=== PATIENT | female | born 1950 | race Caucasian/White ===

== ENCOUNTER → 2016-06-23 | Outpatient (CLI) | payer MEDICARE, OTHER ==
--- NOTE | 2016-06-23 13:54 | MM ---
Reason for exam: history of breast cancer, conservation therapy. Last mammogram was performed 1 year ago. History: Patient is postmenopausal and has history of breast cancer at age 49. Family history of breast cancer in mother and breast cancer in maternal aunt. Benign excisional biopsy of the left breast, 2014. Lumpectomy of the right breast, 1999. Radiation therapy, 1999. Physical Findings: Nurse did not find any significant physical abnormalities on exam. MG 3D Diag Mammo W/Cad FILIPPO Bilateral CC and MLO view(s) were taken. Prior study comparison: June 10, 2015, bilateral MG 3d diag mammo w/cad FILIPPO. June 27, 2014, mammogram, performed at [facility]. The breast tissue is heterogeneously dense. This may lower the sensitivity of mammography. Finding #1: Stable architectural distortion in the right breast. Finding #2: There are typically benign dystrophic, linear calcifications in both breasts. There is no discrete abnormality. These results were verbally communicated with the patient and result sheet given to the patient on 06/23/16. ASSESSMENT: Benign, BI-RAD 2 RECOMMENDATION: Follow-up diagnostic mammogram of both breasts in 1 year.
== END | disposition home or self-care (01) ==
LOC: RADMAMWWP 12:37
PROVIDERS: ATTEND Surgery
DX: Z85.3 Personal history of malignant neoplasm of breast (principal)
CPT/HCPCS: G0204; G0279

== ENCOUNTER → 2016-08-23 | Outpatient (CLI) | payer MEDICARE, OTHER ==
--- NOTE | 2016-08-23 10:55 | XR ---
EXAMINATION TYPE: XR chest 2V DATE OF EXAM: 08/23/2016 10:51 AM COMPARISON: 03/09/2010 INDICATION: Breast cancer TECHNIQUE: 2 view chest FINDINGS: The heart size is normal. The pulmonary vasculature is normal. The lungs are clear. Right axillary surgical clips are present. IMPRESSION: 1. No acute pulmonary process.
== END | disposition home or self-care (01) ==
LOC: RADXRMAIN 10:36
PROVIDERS: ATTEND Internal Medicine Hematology & Oncology
DX: C50.511 Malignant neoplasm of lower-outer quadrant of right female breast (principal); G35 Multiple sclerosis; Q78.2 Osteopetrosis; Z17.0 Estrogen receptor positive status [ER+]
CPT/HCPCS: 71020

== ENCOUNTER → 2016-08-29 | Outpatient (CLI) | payer MEDICARE, OTHER ==
--- NOTE | 2016-08-29 10:55 | BD ---
EXAMINATION TYPE: MG DEXA axial skeleton. DATE OF EXAM: 08/29/2016 10:19 AM CLINICAL HISTORY: Height: 61 inches Weight: 144 FRAX RISK QUESTIONS: Alcohol (3 or more units per day): no Family History (Parent hip fracture): no Glucocorticoids (More than 3mos): no (Ex: prednisone, prednisolone, methylprednisolone, dexamethasone, and hydrocortisone). History of Fracture in Adulthood: no Secondary Osteoporosis: 1. Type 1 Diabetes: no 2. Hyperthyroidism: no 3. Menopause before 45: 44 4. Malnutrition: no 5. Chronic liver disease: no Rheumatoid Arthritis: no Current Tobacco Use: no RISK FACTORS HISTORY OF: Family History of Osteoporosis: patient thinks probably grandmother Drink Alcohol: no Active: no Diet low in dairy products/other sources of calcium: no Postmenopausal woman: yes Take estrogen and/or progesterone medications: no Lost more than 2 inches in height since high school: no Frequent falls: no Poor Health: no Hyperparathyroidism: no Adrenal Insufficiency: no MEDICATIONS: Prednisone or other steroids: no Thyroid Medications: no Osteoporosis Medications: not now Which medication: Fosamax How Long: a couple of years Additional Medications: blood pressure meds, cholesterol meds Additional History: Breast CA, radiation 2000 EXAM MEASUREMENTS: Bone mineral densitometry was performed using the [employer] System. Bone mineral density as measured about the Lumbar spine is: ----- L1-L4(G/cm2): 1.058 T Score Values are as follows: ----- L2: -1.1 ----- L3: -0.9 ----- L4: -1.0 ----- L1-L4: -1.0 Bone mineral density not previously done at this facility; done elsewhere Bone mineral density about the R hip (g/cm2): 0.824 Bone mineral density about the L hip (g/cm2): 0.822 T Score values are as follows: -----R Neck: -1.5 -----L Neck: -1.6 -----R Total: -0.6 -----L Total: -0.9 Bone mineral density not previously done at this facility; done elsewhere IMPRESSION: Normal (Values between +1 and -1 indicate normal bone mass). Consider repeating this study in 5 year s or sooner if there is some new clinical indication. L1, L2 & both hips Osteopenia (T Score between -2.5 and -1 as noted by T score values L2, and Bilateral Necks There is slightly increased risk of fracture and the patient may be considered for treatment. Re-Screen 2-5 years. NOTE: T-SCORE=SD OF THE YOUNG ADULT MEAN.
== END ==
LOC: RADBDWWP 09:54
PROVIDERS: ATTEND Obstetrics & Gynecology
DX: M85.80 Other specified disorders of bone density and structure, unspecified site (principal)
CPT/HCPCS: 77080

== ENCOUNTER → 2016-12-23 | Outpatient (CLI) | payer MEDICARE, OTHER ==
[2016-12-23 11:46] LABS: Basophils # (A) 0.1 k/uL (0-0.2); Basophils % (A) 1 %; CH 30.2; CHCM 34.9; Eosinophils # (A) 0.3 k/uL (0-0.7); Eosinophils % (A) 5 %; HCT 34.6 % (34.0-46.0); HDW 2.96; HGB 12.3 gm/dL (11.4-16.0); Luc # (Auto) 0.13; Luc % (Auto) 2; Lymphocytes % (A) 19 %; MCH 31.1 pg (25.0-35.0); MCHC 35.6 g/dL (31.0-37.0); MCV 87.2 fL (80.0-100.0); Mean Platelet Volume 7.4; Monocytes # (A) 0.6 k/uL (0-1.0); Monocytes % (A) 11 %; Neutrophils # (A) 3.3 k/uL (1.3-7.7); Neutrophils % (A) 62 %; RBC 3.97 m/uL (3.80-5.40); RDW 13.1 % (11.5-15.5); WBC 5.3 k/uL (3.8-10.6); WBC (Perox) 5.68
[2016-12-23 11:57] LABS: ALT 27 U/L (9-52); AST 23 U/L (14-36); Blood Urea Nitrogen 18 mg/dL (7-17); Non-African American GFR(MDRD) >60 (>60 ml/min/1.73 sqM)
== END | disposition home or self-care (01) ==
LOC: LABWHC1 11:12
PROVIDERS: ATTEND Psychiatry & Neurology Neurology
DX: G35 Multiple sclerosis (principal)
CPT/HCPCS: 36415; 82565; 84450; 84460; 84520; 85025

== ENCOUNTER → 2017-07-25 | Outpatient (CLI) | payer MEDICARE, OTHER ==
--- NOTE | 2017-07-25 13:59 | MM ---
Reason for exam: additional evaluation requested from prior study. Last mammogram was performed 1 year and 1 month ago. History: Patient is postmenopausal and has history of breast cancer at age 49. Family history of breast cancer in mother and breast cancer in maternal aunt. Benign excisional biopsy of the left breast, 2014. Lumpectomy of the right breast, 1999. Radiation therapy, 1999. Physical Findings: Nurse did not find any significant physical abnormalities on exam. MG 3D Diag Mammo W/Cad FILIPPO Bilateral CC and MLO view(s) were taken. Prior study comparison: June 23, 2016, bilateral MG 3d diag mammo w/cad FILIPPO. June 10, 2015, bilateral MG 3d diag mammo w/cad FILIPPO. The breast tissue is heterogeneously dense. This may lower the sensitivity of mammography. Finding: There are typically benign dystrophic, round, linear calcifications in both breasts. There is no discrete abnormality. Asymmetry diminished in size right breast consistent with known treatment changes and lumpectomy. These results were verbally communicated with the patient and result sheet given to the patient on 07/25/17. ASSESSMENT: Benign, BI-RAD 2 RECOMMENDATION: Follow-up diagnostic mammogram of both breasts in 1 year.
== END | disposition home or self-care (01) ==
LOC: RADMAMWWP 12:29
PROVIDERS: ATTEND Surgery
DX: Z08 Encounter for follow-up examination after completed treatment for malignant neoplasm (principal); Z85.3 Personal history of malignant neoplasm of breast
CPT/HCPCS: 77066; G0279

== ENCOUNTER → 2018-07-31 | Outpatient (CLI) | payer MEDICARE, OTHER ==
--- NOTE | 2018-07-31 11:31 | MM ---
Reason for exam: additional evaluation requested from prior study. Last mammogram was performed 1 year ago. History: Patient is postmenopausal and has history of breast cancer at age 49. Family history of breast cancer in mother at age 50 and breast cancer in maternal aunt at age 50. Benign excisional biopsy of the left breast, 2014. Lumpectomy of the right breast, 1999. Radiation therapy, 1999. Physical Findings: Nurse did not find any significant physical abnormalities on exam. MG 3D Diag Mammo W/Cad FILIPPO Bilateral CC and MLO view(s) were taken. Prior study comparison: July 25, 2017, bilateral MG 3d diag mammo w/cad FILIPPO. June 23, 2016, bilateral MG 3d diag mammo w/cad FILIPPO. The breast tissue is heterogeneously dense. This may lower the sensitivity of mammography. Stable benign calcifications. Stable post operative changes of lumpectomy right breast. These results were verbally communicated with the patient and result sheet given to the patient on 07/31/18. ASSESSMENT: Benign, BI-RAD 2 RECOMMENDATION: Follow-up diagnostic mammogram of both breasts in 1 year.
== END ==
LOC: RADMAMWWP 10:42
PROVIDERS: ATTEND Surgery
DX: Z08 Encounter for follow-up examination after completed treatment for malignant neoplasm (principal); Z85.3 Personal history of malignant neoplasm of breast
CPT/HCPCS: 77066; G0279; 77062

== ENCOUNTER → 2019-10-25 | Outpatient (CLI) | payer MEDICARE, OTHER ==
--- NOTE | 2019-10-28 07:52 | MM ---
Reason for exam: additional evaluation requested from prior study. Last mammogram was performed 1 year and 3 months ago. History: Patient is postmenopausal and has history of breast cancer at age 49. Family history of breast cancer in mother at age 50 and breast cancer in maternal aunt at age 50. Benign excisional biopsy of the left breast, 2014. Lumpectomy of the right breast, 1999. Radiation therapy, 1999. Physical Findings: Nurse did not find any significant physical abnormalities on exam. MG 3D Diag Mammo W/Cad FILIPPO Bilateral CC and MLO view(s) were taken. XCCL view(s) were taken of the right breast. Prior study comparison: July 31, 2018, bilateral MG 3d diag mammo w/cad FILIPPO. July 25, 2017, bilateral MG 3d diag mammo w/cad FILIPPO. Asymmetric breast tissue greater in the left breast. Post surgical changes right upper outer quadrant. No significant new findings when compared with previous films. These results were verbally communicated with the patient and result sheet given to the patient on 10/25/19. ASSESSMENT: Benign, BI-RAD 2 RECOMMENDATION: Routine screening mammogram of both breasts in 1 year.
== END | disposition home or self-care (01) ==
LOC: RADMAMWWP 12:45
PROVIDERS: ATTEND Surgery
DX: Z09 Encounter for follow-up examination after completed treatment for conditions other than malignant neoplasm (principal); Z85.3 Personal history of malignant neoplasm of breast
CPT/HCPCS: 77066; G0279; 77062

== ENCOUNTER → 2019-11-27 | Outpatient (CLI) | payer MEDICARE, OTHER ==
--- NOTE | 2019-11-27 13:51 | BD ---
EXAMINATION TYPE: Axial Bone Density DATE OF EXAM: 11/27/2019 COMPARISON: 08.29.2016 CLINICAL HISTORY: 69 YR OLD FEMALE......ICD-10 CODE: C50.511 BREAST CA Q78.2 OSTEOPOROSIS, M89. 9 BONE Height: 59.4 Weight: 141 FRAX RISK QUESTIONS: NOTHING TO NOTE HERE RISK FACTORS HISTORY OF: Postmenopausal woman: YES, IN HER 50s Take estrogen and/or progesterone medications: YES, IN PAST FOR COUPLE YRS Hyperparathyroidism: NO Adrenal Insufficiency: NO MEDICATIONS: Osteoporosis Medications: FOSAMAX IN THE PAST ONLY Additional Medications: BP MEDS, CALCIUM WITH VIT D, STATIN FOR CHOLESTEROL, BETASERON. Additional History: HYPERTENSION, CHOLESTEROL, MS EXAM MEASUREMENTS: Bone mineral densitometry was performed using the [employer] System. Bone mineral density as measured about the Lumbar spine is: ----- L1-L4(G/cm2): 1.102 T Score Values are as follows: ---- L2: -0.7 ----- L2: -0.5 ----- L3: -0.7 ----- L4: -0.8 ----- L1-L4: -0.6 Bone mineral density has: Increased 3.1% since study of: 08.29.2016 Bone mineral density about the R hip (g/cm2): 0.907 Bone mineral density about the L hip (g/cm2): 0.869 T Score values are as follows: -----R Neck: -1.0 -----L Neck: -1.4 -----R Total: -0.8 -----L Total: -1.1 Bone mineral density has: Decreased -2.7% since study of: 08.29.2016 FRAX%s: THERE IS A 9.7% CHANCE FOR A MAJOR OSTEOPOROTIC FX AND A 1.3% FOR HIP.....PROBABILITY FOR F X IN 10 YRS TIME IMPRESSION: Osteopenia left hip NOTE: T-SCORE=SD OF THE YOUNG ADULT MEAN.
== END | disposition home or self-care (01) ==
LOC: RADBDWWP 12:30
PROVIDERS: ATTEND Internal Medicine Hematology & Oncology
DX: M85.852 Other specified disorders of bone density and structure, left thigh (principal); C50.511 Malignant neoplasm of lower-outer quadrant of right female breast
CPT/HCPCS: 77080

== ENCOUNTER → 2020-01-02 | Outpatient (CLI) | payer MEDICARE, OTHER ==
[2020-01-02 10:40] VITALS: BP 154/80; PULSE 59; RESP 18; TEMP 98
--- NOTE | 2020-01-02 11:13 | P.PN ---
Subjective Progress Note Date: 01/02/20 Principal diagnosis: history of right breast cancer Chula is a 68-year-old white female status post right breast lumpectomy with radiation treatment in approximately 1999. She had a repeat biopsy of the right breast negative for cancer. Patient several years ago had a biopsy of the left breast which was consistent with scar tissue. The patient has not had any anti-hormonal or chemotherapy. She is not complaining of any lumps masses or nodules in either breast. She is not complaining of any nipple discharge or skin changes of concern. She had a bilateral mammogram on . This was felt to be benign BIRADS 2, routine screening of both breasts in 1 year. The patient comments that her right breast is significantly smaller than her left breast. This is causing difficulty for her with wearing bras, and finding close to fit. Hormonal history: Menarche: 11 Pregnancies: 1 at 20 Plastic: No Menopause: 49 control pills: 10 years Hormones: Negative Family history: Mother: Bilateral breast cancer with a recurrence Maternal aunt: Breast cancer Past surgical history: 1. Right breast lumpectomy 2. D&C 3. left breast open biopsy Past medical history: 1. Hypertension 2. Multiple sclerosis Social history: Smoking: Negative Alcohol: Negative Drugs: Negative Review of systems: HEENT: Macular degeneration Hematologic: Negative Lungs: Negative Heart: Negative GI: Negative : negative postmenopausal Neurologic: Multiple sclerosis Musculoskeletal: Negative ALLERGIES: Negative Objective - Vital Signs Vital signs: Vital Signs Temp 98.0 F 01/02/20 10:35 Pulse 59 L 01/02/20 10:35 Resp 18 01/02/20 10:35 BP 154/80 01/02/20 10:35 Pulse Ox 97 01/02/20 10:35 Intake & Output 01/01/20 01/02/20 01/02/20 18:59 06:59 18:59 Weight 64.864 kg - Exam BMI 27 - Constitutional General appearance: Present: average body habitus - EENT Eyes: Present: EOMI ENT: Present: hearing grossly normal - Neck Neck: Present: normal ROM - Respiratory Respiratory: bilateral: CTA - Cardiovascular Rhythm: regular Heart sounds: normal: S1, S2 - Gastrointestinal General gastrointestinal: Present: normal bowel sounds, soft - Integumentary Integumentary: Present: normal turgor - Musculoskeletal Musculoskeletal: Present: gait normal - Psychiatric Psychiatric: Present: A&O x's 3, appropriate affect, intact judgment & insight - Additional findings Additional findings: Breast exam: BRA: 44B inspection: right breast smaller than left breast, the right breast is approximately a quarter of the size of the left breast Palpation: Right breast: Multiple positional exam fibrocystic changes, scar tissue from prior surgery, no evidence of recurrent cancer, no dominant masses or nodules of concern Right axilla: No adenopathy of concern Left breast: Approximately three quarters larger than the right breast, fibrocystic changes, no dominant masses or nodules of concern Left axilla: No adenopathy of concern Assessment and Plan Assessment: Impression: 1. Patient status post lumpectomy for right breast cancer no evidence of recurrent disease 2. Marked asymmetry of the breast related to cancer treatment 3. Anxiety related to asymmetry of the breasts and difficulty finding clothes to fit 4. Multiple sclerosis 5. Hypertension Plan: 1. repeat bilateral mammogram in October 2020 2. walker pattern reduction mammoplasty of the left breast 3. medical clearance from DR. Cazares The patient was marked for walker pattern markings so that she would understand with the operation would entail. I discussed the risks and benefits of the procedure. These include but not limited to bleeding, infection, reaction to the anesthetic. She understands and wishes to proceed. This will be scheduled in the near future. CC: Dr. Cazares encounter 45 minutes, > 50% of time in planning and counselling
== END | disposition home or self-care (01) ==
LOC: WWCWWP 10:25
PROVIDERS: ATTEND Surgery
DX: Z53.9 Procedure and treatment not carried out, unspecified reason (principal)

== ENCOUNTER → 2020-10-26 | Outpatient (CLI) | payer MEDICARE, OTHER ==
--- NOTE | 2020-10-28 08:13 | MM ---
Reason for exam: screening (asymptomatic). Last mammogram was performed 1 year ago. History: Patient is postmenopausal and has history of breast cancer at age 49. Family history of breast cancer in mother at age 50 and breast cancer in maternal aunt at age 50. Benign excisional biopsy of the left breast, 2015. Lumpectomy of the right breast, 1999. Radiation therapy, 1999. Physical Findings: A clinical breast exam by your physician is recommended on an annual basis and results should be correlated with mammographic findings. MG 3D Screening Mammo W/Cad Bilateral CC and MLO view(s) were taken. Prior study comparison: October 25, 2019, bilateral MG 3d diag mammo w/cad FILIPPO. July 31, 2018, bilateral MG 3d diag mammo w/cad FILIPPO. Finding: There are diffuse/scattered coarse calcifications in both breasts. Asymmetric breast tissue greater in the left breast. Physical changes right upper outer quadrant. No significant changes in finding since October 25, 2019 and July 31, 2018. ASSESSMENT: Benign, BI-RAD 2 RECOMMENDATION: Routine screening mammogram of both breasts in 1 year.
== END | disposition home or self-care (01) ==
LOC: RADMAMWWP 10:05
PROVIDERS: ATTEND Surgery
DX: Z12.31 Encounter for screening mammogram for malignant neoplasm of breast (principal); Z78.0 Asymptomatic menopausal state; Z85.3 Personal history of malignant neoplasm of breast; Z80.3 Family history of malignant neoplasm of breast
CPT/HCPCS: 77063; 77067

== ENCOUNTER → 2020-10-30 | Outpatient (CLI) | payer MEDICARE, OTHER ==
[2020-10-30 15:35] VITALS: BP 98/59; PULSE 55; RESP 16; TEMP 98.2
--- NOTE | 2020-10-30 15:37 | P.PN ---
Subjective Progress Note Date: 10/30/20 Principal diagnosis: right breast cancer surveillance Chula is a 70-year-old white female status post right breast lumpectomy with radiation treatment in approximately 1999. She had a repeat biopsy of the right breast negative for cancer. Patient several years ago had a biopsy of the left breast which was consistent with scar tissue. The patient has not had any anti- hormonal or chemotherapy. She is not complaining of any lumps masses or nodules in either breast. S he is not complaining of any nipple discharge or skin changes of concern. She had a bilateral mammogram on . This was felt to be benign BIRADS 2, routine screening of both breasts in 1 year. The patient comments that her right breast is significantly smaller than her left breast. This is causing difficulty for her with wearing bras, and finding close to fit. She had considered a symmetry procedure but then decided against that. At this time she is not interested in the procedure. Hormonal history: Menarche: 11 Pregnancies: 1 at 20 Plastic: No Menopause: 49 control pills: 10 years Hormones: Negative Family history: Mother: Bilateral breast cancer with a recurrence Maternal aunt: Breast cancer Past surgical history: 1. Right breast lumpectomy 2. D&C 3. left breast open biopsy Past medical history: 1. Hypertension 2. Multiple sclerosis Social history: Smoking: Negative Alcohol: Negative Drugs: Negative Review of systems: HEENT: Macular degeneration Hematologic: Negative Lungs: Negative Heart: Negative GI: Negative : negative postmenopausal Neurologic: Multiple sclerosis Musculoskeletal: Negative ALLERGIES: Negative Objective - Exam BMI 24.9 - Constitutional General appearance: Present: cooperative - EENT Eyes: Present: EOMI ENT: Present: hearing grossly normal - Neck Neck: Present: normal ROM - Respiratory Respiratory: bilateral: CTA - Cardiovascular Heart sounds: normal: S1, S2 - Integumentary Integumentary: Present: normal turgor - Musculoskeletal Musculoskeletal: Present: gait normal - Psychiatric Psychiatric: Present: A&O x's 3, appropriate affect, intact judgment & insight - Additional findings Additional findings: Breat Exam: BRA: sports bra large Weeks: Grade 3 ptosis bilaterally Palpation: Right breast: Postoperative changes and radiation changes no dominant masses or nodules of concern Right axilla: No adenopathy of concern Left breast: Multiple positional exam fibrocystic changes no dominant masses or nodules of concern Left axilla: No adenopathy of concern Assessment and Plan Assessment: Impression: 1. Hypertension 2. Multiple sclerosis 3. Right breast status post lumpectomy and radiation therapy chemotherapy. The hormone therapy this was an approximately 1999 no evidence of recurrent right breast cancer 4. Asymmetry of the breast at this time patient has declined a symmetry procedure Plan: 1. Repeat bilateral mammogram in 1 year with physician exam at that time 2. If patient decides she would like to have a procedure on the left breast for reduction she will call us CC: DR. Cazares
== END ==
LOC: WWCWWP 15:21
PROVIDERS: ATTEND Surgery
DX: N64.89 Other specified disorders of breast (principal); I10 Essential (primary) hypertension; G35 Multiple sclerosis; Z92.3 Personal history of irradiation; Z98.890 Other specified postprocedural states; Z85.3 Personal history of malignant neoplasm of breast; Z92.21 Personal history of antineoplastic chemotherapy

== ENCOUNTER → 2020-11-03 | Outpatient (CLI) | payer MEDICARE, OTHER ==
[2020-11-03 11:50] LABS: Basophils # (A) 0.1 k/uL (0-0.2); Basophils % (A) 1 %; Eosinophils # (A) 0.3 k/uL (0-0.7); Eosinophils % (A) 5 %; HCT 37.3 % (34.0-46.0); HGB 12.8 gm/dL (11.4-16.0); Lymphocytes # (A) 0.9 k/uL (1.0-4.8); Lymphocytes % (A) 17 %; MCH 30.4 pg (25.0-35.0); MCHC 34.3 g/dL (31.0-37.0); MCV 88.7 fL (80.0-100.0); Mean Platelet Volume 7.8; Monocytes # (A) 0.4 k/uL (0-1.0); Monocytes % (A) 8 %; Neutrophils # (A) 3.8 k/uL (1.3-7.7); Neutrophils % (A) 68 %; Platelet Count 261 k/uL (150-450); RBC 4.21 m/uL (3.80-5.40); RDW 13.5 % (11.5-15.5); WBC 5.7 k/uL (3.8-10.6)
[2020-11-03 12:02] LABS: Potassium 4.1 mmol/L (3.5-5.1)
[2020-11-03 13:18] LABS: INR 0.9 (<1.2); Partial Thromboplastin Time 23.5 sec (22.0-30.0)
== END | disposition home or self-care (01) ==
LOC: LABWHC1 11:19
PROVIDERS: ATTEND Internal Medicine Nephrology
DX: R80.9 Proteinuria, unspecified (principal)
CPT/HCPCS: 36415; 80051; 82565; 84520; 85025; 85610; 85730; 86850; 86900; 86901

== ENCOUNTER 2020-11-05 08:46 | Day surgery (SDC) | payer MEDICARE, OTHER ==
[2020-11-05 09:16] VITALS: RESP 16
[2020-11-05] MEDS ORDERED: ALPRAZolam 0.25 MG TAB PO STA (09:26)
[2020-11-05] MEDS ORDERED: HYDROmorphone 0.5 MG/0.5 ML SYRINGE IVP STA (10:04)
--- NOTE | 2020-11-05 12:03 | CT ---
EXAMINATION TYPE: CT biopsy renal RT DATE OF EXAM: 11/05/2020 COMPARISON: NONE HISTORY: Proteinuria CT DLP: 1886 mGycm The procedure was explained to the patient. The risks, complications, benefits, and alternatives wer e discussed and any questions were answered. Informed consent was obtained. Patient was placed pron e on the CT table and prepped and draped in the usual sterile fashion. Utilizing CT guidance, an 18 gauge core biopsy needle access into the right renal cortex was achieved and three 18 gauge core samples were obtained. The patient was stable throughout the procedure and remained stable upon discharge. IMPRESSION: Successful 18 gauge core biopsy of the kidney function.
[2020-11-05 13:46] VITALS: BP 136/65; PULSE 52; TEMP 97.6
== END 2020-11-05 16:05 | disposition home or self-care (01) ==
LOC: RADPROMAIN 08:46 → 6PED 10:42 → RADPROMAIN 16:05
PROVIDERS: ATTEND Internal Medicine Nephrology
DX: I12.9 Hypertensive chronic kidney disease with stage 1 through stage 4 chronic kidney disease, or unspecified chronic kidney disease (principal); N18.9 Chronic kidney disease, unspecified
CPT/HCPCS: 50200; 77012; J1170; 86850; 86900; 86901

== ENCOUNTER → 2021-09-28 | Outpatient (CLI) | payer MEDICARE, OTHER ==
--- NOTE | 2021-09-28 11:00 | BD ---
EXAMINATION TYPE: Axial Bone Density DATE OF EXAM: 09/28/2021 COMPARISON: NONE CLINICAL HISTORY: 71 year old Female. ICD-10 CODE: N95.1 POST MENOPAUSAL SYMPTOMS Height: 60 Weight: 132.4 FRAX RISK QUESTIONS: Alcohol (3 or more units per day): no Family History (Parent hip fracture): yes Glucocorticoids (More than 3mos): no (Ex: prednisone, prednisolone, methylprednisolone, dexamethasone, and hydrocortisone). History of Fracture in Adulthood: no Secondary Osteoporosis: 1. Type 1 Diabetes: no 2. Hyperthyroidism: no 3. Menopause before 45: no 4. Malnutrition: no 5. Chronic liver disease: no Rheumatoid Arthritis: no Current Tobacco Use: no RISK FACTORS HISTORY OF: Surgery to Spine/Hip(right/left)/Wrist (right/left): no Family History of Osteoporosis: no Active: yes Diet low in dairy products/other sources of calcium: yes Postmenopausal woman: yes Lost more than 2 inches in height since high school: yes MEDICATIONS: Additional History: EXAM MEASUREMENTS: Bone mineral densitometry was performed using the [employer] System. Bone mineral density as measured about the Lumbar spine is: ----- L1-L4(G/cm2): 1.029 T Score Values are as follows: ----- L1: -1.7 ----- L2: -1.2 ----- L3: -1.5 ----- L4: -1.0 ----- L1-L4: -1.3 Bone mineral density has: decreased -5.3 % since study of: 11.27.2019 Bone mineral density about the R hip (g/cm2): 0.814 Bone mineral density about the L hip (g/cm2): 0.821 T Score values are as follows: -----R Neck: -1.6 -----L Neck: -1.6 -----R Total: -1.0 -----L Total: -1.1 Bone mineral density has: decreased -1.4 % since study of: 11.27.2019 FRAX%s: The graph provided illustrates a 17.3% chance for a major osteoporotic fx and a 5.6% chance f or the hips probability for fx in 10 years time. IMPRESSION: Osteopenia (T Score between -2.5 and -1). There is slightly increased risk of fracture and the patient may be considered for treatment. Re-Screen 2-5 years. NOTE: T-SCORE=SD OF THE YOUNG ADULT MEAN.
== END | disposition home or self-care (01) ==
LOC: RADBDWWP 09:45
PROVIDERS: ATTEND Obstetrics & Gynecology
DX: M85.89 Other specified disorders of bone density and structure, multiple sites (principal)
CPT/HCPCS: 77080

== ENCOUNTER → 2021-10-28 | Outpatient (CLI) | payer MEDICARE, OTHER ==
--- NOTE | 2021-10-29 08:02 | MM ---
Reason for Exam: Screening (asymptomatic). Last screening mammogram was performed 12 month(s) ago. Patient History: Menarche at age 11. First Full-Term at age 20. Postmenopausal. Breast cancer, right, age 49. 2014, Benign Excisional Biopsy on the left side. 1999, Lumpectomy on the Right side. 1999, Radiation Therapy. Maternal aunt had breast cancer, age 50. Mother had breast cancer, age 50. Prior Study Comparison: 07/31/2018 Bilateral Diagnostic Mammogram, [facility]. 10/25/2019 Bilateral Diagnostic Mammogram, [facility]. 10/26/2020 Bilateral Screening Mammogram, [facility]. Tissue Density: The breast tissue is heterogeneously dense. This may lower the sensitivity of mammography. Findings: Analyzed By CAD. There is no suspicious group of microcalcifications or new suspicious mass in either breast. Distortion right breast from prior surgical lumpectomy. Coarse benign calcifications bilaterally. Overall Assessment: Benign, BI-RAD 2 Management: Screening Mammogram of both breasts in 1 year. A clinical breast exam by your physician is recommended on an annual basis and results should be correlated with mammographic findings. Electronically signed and approved by: Wily Caldwell M.D. Radiologis
== END | disposition home or self-care (01) ==
LOC: RADMAMWWP 08:39
PROVIDERS: ATTEND Surgery
DX: Z12.31 Encounter for screening mammogram for malignant neoplasm of breast (principal); Z78.0 Asymptomatic menopausal state; Z80.3 Family history of malignant neoplasm of breast
CPT/HCPCS: 77063; 77067

== ENCOUNTER → 2021-11-04 | Outpatient (CLI) | payer MEDICARE, OTHER ==
[2021-11-04 09:56] VITALS: BP 131/75; PULSE 52; RESP 17; TEMP 97.9
--- NOTE | 2021-11-04 10:11 | P.PN ---
Subjective Progress Note Date: 11/04/21 Principal diagnosis: right breast cancer 1999/ surveillance right breast cancer surveillance Chula is a 71-year-old white female status post right breast lumpectomy with radiation treatment in approximately 1999. She had a repeat biopsy of the right breast negative for cancer. Patient several years ago had a biopsy of the left breast which was consistent with scar tissue. The patient has not had any anti- hormonal or chemotherapy. She is not complaining of any lumps masses or nodules in either breast. She is not complaining of any nipple discharge or skin changes of concern. She had a bilateral mammogram on . This was felt to be benign BIRADS 2, routine screening of both breasts in 1 year. He has no complaints of any new lumps masses or nodules in either breast. The patient comments that her right breast is significantly smaller than her left breast. This is causing difficulty for her with wearing bras, and finding close to fit. She had considered a symmetry procedure but then decided against that. At this time she is not interested in the procedure. Hormonal history: Menarche: 11 Pregnancies: 1 at 20 Plastic: No Menopause: 49 control pills: 10 years Hormones: Negative Family history: Mother: Bilateral breast cancer with a recurrence Maternal aunt: Breast cancer Past surgical history: 1. Right breast lumpectomy 2. D&C 3. left breast open biopsy Past medical history: 1. Hypertension 2. Multiple sclerosis Social history: Smoking: Negative Alcohol: Negative Drugs: Negative Review of systems: HEENT: Macular degeneration Hematologic: Negative Lungs: Negative Heart: Negative GI: Negative : negative postmenopausal Neurologic: Multiple sclerosis Musculoskeletal: Negative ALLERGIES: Negative Objective - Vital Signs Vital signs: Vital Signs Temp 97.9 F 11/04/21 09:53 Pulse 52 L 11/04/21 09:53 Resp 17 11/04/21 09:53 BP 131/75 11/04/21 09:53 Pulse Ox 98 11/04/21 09:53 FiO2 Intake & Output 11/03/21 11/04/21 11/04/21 18:59 06:59 18:59 Weight 58.967 kg - Exam BMI: 25.4 - Constitutional General appearance: Present: cooperative - EENT Eyes: Present: EOMI ENT: Present: hearing grossly normal - Neck Neck: Present: normal ROM Thyroid: bilateral: normal size - Respiratory Respiratory: bilateral: CTA - Cardiovascular Rhythm: regular Heart sounds: normal: S1, S2 - Integumentary Integumentary: Present: normal turgor - Musculoskeletal Musculoskeletal: Present: gait normal - Psychiatric Psychiatric: Present: A&O x's 3, appropriate affect, intact judgment & insight - Additional findings Additional findings: Breast Exam: sports bra: medium inspection: Asymmetry of the breast, left side larger than right side; bilateral grade 3 ptosis Palpation: Right breast: Postoperative and postradiation changes, no dominant masses or nodules of concern Right axilla: No adenopathy of concern Left breast: Multi-positional exam fibrocystic changes, no dominant masses or notches of concern Left axilla: No adenopathy of concern Assessment and Plan Assessment: Impression: Patient status post right breast lumpectomy and radiation therapy no evidence of recurrent cancer Asymmetry of the breast related to prior cancer surgery Fibrocystic breast changes Bilateral mammograms [id number] benign BIRADS 2 Plan: Repeat bilateral mammogram in 1 year We have again discussed the asymmetry of the breasts and patient is going to consider if she would like to have a reduction mammoplasty on the left Follow-up in 1 year unless any questions or concerns or unless she decides to have a reduction mammoplasty CC: Dr. Cazares
== END ==
LOC: WWCWWP 09:30
PROVIDERS: ATTEND Surgery
DX: Z08 Encounter for follow-up examination after completed treatment for malignant neoplasm (principal); Z85.3 Personal history of malignant neoplasm of breast; N60.12 Diffuse cystic mastopathy of left breast; Z98.890 Other specified postprocedural states; N64.89 Other specified disorders of breast; I10 Essential (primary) hypertension

== ENCOUNTER → 2021-12-17 | Outpatient (CLI) | payer MEDICARE, OTHER ==
--- NOTE | 2021-12-17 12:45 | MR ---
EXAMINATION TYPE: MR brain wo/w con DATE OF EXAM: 12/17/2021 11:38 AM COMPARISON: NONE HISTORY: MS, left side weakness and numbness CONTRAST: Patient received 6 mL intravenous Gadavist gadolinium contrast. Multiplanar and multispin-echo imaging of the brain was performed . Pre and post contrast enhanced i mages are obtained. The ventricles, basal cisterns and sulci overlying the cerebral convexities are moderately enlarged. There is severe confluent increased signal within the periventricular and deep white matter of both c erebral hemispheres which may reflect chronic small vessel ischemic change however given Johnson finge r morphology I suspect underlying multiple sclerosis with demyelination. Total number of lesions is d ifficult to count given the confluent nature. Largest lesion in the high right frontal lobe measures 1.1 cm on the right and left centrum semioval lesion measuring 5.3 mm. No acute edema is seen on diffusion weighted imaging. There is no evidence for midline shift or mass effect. Acute intracranial hemorrhage or extra-axial collection is not evident. No enhancing intracranial lesions are seen. Nonspecific lesions adjacent to the deep lobe of the righ t parotid gland measuring 2.7 cm and within the parotid gland on the left at 7.8 mm. This could refle ct lymph nodes. Lesions of other etiology are not excluded. Contrast CT of the neck is advised. The paranasal sinuses and mastoid air cells are well-aerated. IMPRESSION: 1. Severe confluent increased signal within the deep and periventricular white matter of both cerebra l hemispheres with areas of Johnson finger morphology. Correlate for multiple sclerosis. 2. CT of the neck recommended with contrast for parotid lesions.
== END | disposition home or self-care (01) ==
LOC: RADMRIMAIN 10:43
PROVIDERS: ATTEND Psychiatry & Neurology Neurology
DX: G35 Multiple sclerosis (principal)
CPT/HCPCS: 70553

== ENCOUNTER 2022-09-14 08:50 | Day surgery (SDC) | payer MEDICARE, OTHER ==
[2022-09-14 09:19] VITALS: RESP 18; TEMP 98.1
[2022-09-14 09:58] VITALS: BP 110/64; PULSE 52
--- NOTE | 2022-09-14 10:24 | US ---
ULTRASOUND GUIDED RIGHT CAROTID BIOPSY: CLINICAL HISTORY: Abnormal outside CT scan FINDINGS: Preliminary imaging of the right parotid gland failed to demonstrate the lesion noted by prior MRI an d CT scan. The site CAT scan and a prior MRI were reviewed. The mandible appears to overlap with the lesion with no safe percutaneous access. Procedure deferred. IMPRESSION: 1. Ultrasound does not demonstrate a lesion in question parotid gland. Review of the outside hospital CT scan and MRI demonstrates mandible overlap the lesion with no safe percutaneous access. This may explain why ultrasound does not demonstrate a lesion. 2. No prior PET scan is seen. If the patient has not had a PET scan then recommend consideration for PET scan to determine the activity of the lesion given its difficult location for biopsy.
== END 2022-09-14 10:35 | disposition home or self-care (01) ==
LOC: RADPROMAIN 08:50
PROVIDERS: ATTEND Otolaryngology
DX: Z53.8 Procedure and treatment not carried out for other reasons (principal); R93.89 Abnormal findings on diagnostic imaging of other specified body structures
CPT/HCPCS: 76536

== ENCOUNTER 2022-09-17 09:06 | Emergency (ER) | payer MEDICARE, OTHER ==
[2022-09-17 09:20] VITALS: RESP 18; TEMP 97.8
[2022-09-17] MEDS ORDERED: KETOROLAC 15 MG/ML 1 ML VIAL IM STA (09:45)
--- NOTE | 2022-09-17 09:56 | ED ---
Extremity Problem HPI - General Chief complaint: Extremity Problem,Nontraumatic Stated complaint: Shoulder pain Time Seen by Provider: 09/17/22 09:45 Source: patient Mode of arrival: ambulatory Limitations: no limitations - History of Present Illness Initial comments: Patient is a pleasant 72-year-old female presenting to the emergency room with complaints of bilateral shoulder pain ongoing for a few months that has progressively worsened over the last month to the point where she is unable to tolerate the pain at this time. She reports she contacted her primary care provider but he cannot see her until the end of the month. She is not taking any medications at home to help treat her symptoms. She denies trauma, range of motion impairment, numbness or tingling. She denies any joint redness, wounds, fevers or chills. She has a past medical history significant for right breast cancer, multiple sclerosis, hyperlipidemia and hypertension. - Related Data Home Medications Medication Instructions Recorded Confirmed Calcium Carbonate [Calcium] 600 mg PO QAM 08/02/18 09/14/22 Multivitamin [Multivitamins Adult 1 each PO QAM 08/02/18 09/14/22 Gummies] Simvastatin [Zocor] 20 mg PO HS 08/02/18 09/14/22 atenoloL 100 mg PO QAM 08/02/18 09/14/22 lisinopriL 40 mg PO QAM 08/02/18 09/14/22 cloNIDine HCL [Catapres] 0.1 mg PO DAILY 01/02/20 09/14/22 hydroCHLOROthiazide 25 mg PO QAM 01/02/20 09/14/22 Previous Rx's Medication Instructions Recorded Ibuprofen 600 mg PO Q8H PRN 10 Days #30 tab 09/17/22 Allergies Allergy/AdvReac Type Severity Reaction Status Date / Time No Known Allergies Allergy Verified 09/17/22 09:20 Review of Systems ROS Statement: Those systems with pertinent positive or pertinent negative responses have been documented in the HPI. ROS Other: All systems not noted in ROS Statement are negative. Past Medical History Past Medical History: Cancer, Hyperlipidemia, Hypertension Additional Past Medical History / Comment(s): MS diagnosed 1998; RT breast cancer. History of Any Multi-Drug Resistant Organisms: None Reported Past Surgical History: Breast Surgery Additional Past Surgical History / Comment(s): RT breast lumpectomy; D&C; LT breast open biopsy Past Anesthesia/Blood Transfusion Reactions: No Reported Reaction Past Psychological History: No Psychological Hx Reported Smoking Status: Never smoker Past Alcohol Use History: None Reported Past Drug Use History: None Reported - Past Family History Mother Family Medical History: Cancer Additional Family Medical History / Comment(s): breast General Exam - General Exam Comments Initial Comments: GENERAL: No acute distress, well developed, well nourished. HEENT: Normocephalic, atraumatic. Pupils equal, round, reactive to light. Moist mucous membranes. LUNGS: No respiratory distress or use of accessory muscles. HEART: Regular rate.. ABDOMEN: Non-distended. BACK: Normal inspection. EXTREMITIES: No edema. No tenderness. Moves all extremities. Bilateral shoulders with slow but full range of motion. No point tenderness. NEUROLOGIC: Alert & oriented x 3. CN II-XII grossly intact. PSYCHIATRIC: Normal affect and behavior. DERMATOLOGIC: Skin intact, without rashes or lesions noted.. Limitations: no limitations Course Vital Signs 09/17/22 09/17/22 09:17 11:06 Temperature 97.8 F Pulse Rate 53 L 54 L Respiratory 18 18 Rate Blood Pressure 117/67 124/81 O2 Sat by Pulse 97 96 Oximetry Medical Decision Making - Medical Decision Making Was pt. sent in by a medical professional or institution (, PA, FOXER, urgent care, hospital, or snf...) When possible be specific @ -No Did you speak to anyone other than the patient for history (EMS, parent, family, police, friend...)? What history was obtained from this source @ -No Did you review nursing and triage notes (agree or disagree)? Why? @ -I reviewed and agree with nursing and triage notes Were old charts reviewed (outside hosp., previous admission, EMS record, old EKG, old radiological studies, urgent care reports/EKG's, snf records)? Report findings @ -No old charts were reviewed Differential Diagnosis (chest pain, altered mental status, abdominal pain women, abdominal pain men, vaginal bleeding, weakness, fever, dyspnea, syncope, headache, dizziness, GI bleed, back pain, seizure, CVA, palpatations, mental health, musculoskeletal)? @ -Differential Musculoskeletal Muscular strain, contusion, ligament sprain, fracture, arthritis, septic arthritis, bursitis, cellulitis, muscle spasm, nerve compression, DVT, arterial occlusion, herpes zoster, electrolyte abnormality, tumor.... This is not meant to be in all inclusive list EKG interpreted by me (3pts min.). @ -None done X-rays interpreted by me (1pt min.). @ -None done CT interpreted by me (1pt min.). @ -None done U/S interpreted by me (1pt. min.). @ -None done What testing was considered but not performed or refused? (CT, X-rays, U/S, labs)? Why? @ -None What meds were considered but not given or refused? Why? @ -None Did you discuss the management of the patient with other professionals (professionals i.e. , PA, FOXER, lab, RT, psych nurse, social services, baby formula worker, teacher, air defence officer, case advocate)? Give summary @ -No Was smoking cessation discussed for >3mins.? @ -No Was critical care preformed (if so, how long)? @ -No Were there social determinants of health that impacted care today? How? (Homelessness, low income, unemployed, alcoholism, drug addiction, transportation, low edu. Level, literacy, decrease access to med. care, long-term, rehab)? @ -No Was there de-escalation of care discussed even if they declined (Discuss DNR or withdrawal of care, Hospice)? DNR status @ -No What co-morbidities impacted this encounter? (DM, HTN, Smoking, COPD, CAD, Cancer, CVA, ARF, Chemo, Hep., AIDS, mental health diagnosis, sleep apnea, morbid obesity)? @ -None Was patient admitted / discharged? Hospital course, mention meds given and route, prescriptions, significant lab abnormalities, going to OR and other pertinent info. @ - 72-year-old female presenting to the emergency room with complaints of bilateral shoulder pain ongoing for a few months that has progressively worsened over the last month to the point where she is unable to tolerate the pain at this time. Symptoms consistent with osteoarthritis. No indication for diagnostic imaging or laboratory studies. Will give IM Toradol and monitor efficacy. Good response to Toradol with improvement in pain. Long discussion with patient regarding osteoarthritis symptoms. Advised use of anti-inflammatories for pain as needed. Will give Motrin starter pack and prescribed Motrin 600 to utilize as needed. Advised keeping upcoming appointment with primary care provider. Question concerns answered. Return parameters to the emergency room discussed. Will discharge home in stable condition on oral NSAID prescription for bilateral shoulder pain advising follow-up with primary care provider. Undiagnosed new problem with uncertain prognosis? @ -No Drug Therapy requiring intensive monitoring for toxicity (Heparin, Nitro, Insulin, Cardizem)? @ -No Were any procedures done? @ -No Diagnosis/symptom? @ -Bilateral shoulder pain Acute, or Chronic, or Acute on Chronic? @ -Acute on chronic Uncomplicated (without systemic symptoms) or Complicated (systemic symptoms)? @ -Uncomplicated Side effects of treatment? @ -No Exacerbation, Progression, or Severe Exacerbation? @ -No Poses a threat to life or bodily function? How? (Chest pain, USA, NM, pneumonia, PE, COPD, DKA, ARF, appy, cholecystitis, CVA, Diverticulitis, Homicidal, Suicidal, threat to staff... and all critical care pts) @ -No Case discussed with Dr. Donaldson. Disposition Clinical Impression: Shoulder pain, bilateral Disposition: HOME SELF-CARE Condition: Stable Instructions (If sedation given, give patient instructions): Osteoarthritis (ED), Shoulder Pain (ED) Additional Instructions: Utilize ibuprofen as needed for shoulder pain; do not take other NSAIDs with the ibuprofen. Gentle range of motion encouraged. Please follow-up with your primary care provider. Please return to the Emergency Department if symptoms worsen or any other concerns. Prescriptions: Ibuprofen 600 mg PO Q8H PRN 10 Days #30 tab PRN Reason: Pain Is patient prescribed a controlled substance at d/c from ED?: No Referrals: Rick Cazares DO [Primary Care Provider] - 1-2 days Time of Disposition: 10:50
[2022-09-17] MEDS ORDERED: IBUPROFEN 600 MG STARTER PACK 4 TAB BTL PO STA (10:48)
[2022-09-17 11:07] VITALS: BP 124/81; PULSE 54
== END 2022-09-17 11:07 | disposition home or self-care (01) ==
LOC: EC 09:06
DX: M25.512 Pain in left shoulder (principal); M25.511 Pain in right shoulder; E78.5 Hyperlipidemia, unspecified; I10 Essential (primary) hypertension; Z79.899 Other long term (current) drug therapy
CPT/HCPCS: 99283; 96372; J1885

== ENCOUNTER → 2022-10-07 | Outpatient (CLI) | payer MEDICARE, OTHER ==
--- NOTE | 2022-10-07 10:20 | PE ---
EXAMINATION TYPE: PET CT fusion skull to thigh DATE OF EXAM: 10/07/2022 COMPARISON: NONE HISTORY: Plasmacytoma per patient, right femoral level. History of right-sided breast cancer. Head and neck cancer per order. TECHNIQUE: Following the intravenous administration of 13.2 mCi of F-18 FDG, whole body images are p erformed from the top of skull to the midthigh. Images are reviewed on the computer in the coronal, axial, and sagittal planes. Reconstructed rotating images are created on independent workstation and reviewed on the computer. A localization and attenuation correction CT is performed in conjunction with the PET scan. Blood glucose level was 137. Dedicated PET/CT of the head and neck is performed. SCAN: Initial Scan FINDINGS: HEAD AND NECK: No areas of abnormal metabolic uptake. No suspicious Hypermetabolic mucosal masses or neck adenopathy is seen in particular. CHEST, MEDIASTINUM, AND HILAR REGION: No areas of abnormal hypermetabolic uptake. ABDOMEN AND PELVIS: Normal excretion is identified. No areas of abnormal hypermetabolic uptake seen. OSSEOUS STRUCTURES: No areas of abnormal hypermetabolic uptake OTHER CT: There is mild to moderate diffuse cerebral atrophy and chronic small vessel ischemic change in the brain. Nasal septum is deviated to right of midline. Small thyroid nodules are present. Scatt ered calcifications throughout the right breast. There are surgical clips in the deep right axilla. C ardiomegaly is noted. Coronary artery calcification is seen which is noted marker for underlying klarissa nary artery disease. Diverticula in the left and sigmoid colon. There is a pessary type device in the vaginal canal. There is scoliotic curvature. IMPRESSION: No hypermetabolic osseous or soft tissue lesions to suggest active myelomatous disease. N o hypermetabolic masses or lymph nodes noted.
== END | disposition home or self-care (01) ==
LOC: RADPETMAIN 07:35
PROVIDERS: ATTEND Otolaryngology
DX: R93.0 Abnormal findings on diagnostic imaging of skull and head, not elsewhere classified (principal)
CPT/HCPCS: 78815; A9552

== ENCOUNTER → 2022-11-02 | Outpatient (CLI) | payer MEDICARE, OTHER ==
[2022-11-02 08:46] VITALS: BP 131/61; PULSE 52; RESP 13; TEMP 98.1
--- NOTE | 2022-11-02 09:00 | P.PN ---
Subjective Progress Note Date: 11/02/22 Principal diagnosis: surveillance right breast cancer 1999 right breast cancer 1999/ surveillance Ch[place] is a 72-year-old white female status post right breast lumpectomy with radiation treatment in approximately 1999. She had a repeat biopsy of the right breast negative for cancer. Patient several years ago had a biopsy of the left breast which was consistent with scar tissue. The patient has not had any anti- hormonal or chemotherapy. She is not complaining of any lumps masses or nodules in either breast. She is not complaining of any nipple discharge or skin changes of concern. The patient has a history of multiple sclerosis. Her neurologist retired and sh e went to see Dr. Reza ordered an MRI of the brain. This revealed an incidental finding of a nodule in the right side of the thyroid. She subsequently saw Dr. Sherman and a PET/CT was done. This did not show any evidence of metastatic disease. Bilateral mammograms 724-23 BIRAD 0, needs right breast ultrasound The patient comments that her right breast is significantly smaller than her left breast. She is not interested in a reduction of the left side at this time. Hormonal history: Menarche: 11 Pregnancies: 1 at 20 Plastic: No Menopause: 49 control pills: 10 years Hormones: Negative Family history: Mother: Bilateral breast cancer with a recurrence Maternal aunt: Breast cancer Past surgical history: 1. Right breast lumpectomy 2. D&C 3. left breast open biopsy Past medical history: 1. Hypertension 2. Multiple sclerosis 3. 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 Social history: Smoking: Negative Alcohol: Negative Drugs: Negative Review of systems: HEENT: Macular degeneration Hematologic: Negative Lungs: Negative Heart: Negative GI: Negative : negative postmenopausal Neurologic: Multiple sclerosis Musculoskeletal: Negative ALLERGIES: Negative Objective - Vital Signs Vital signs: Intake & Output 11/01/22 11/02/22 11/02/22 18:59 06:59 18:59 Weight 59.874 kg - Constitutional General appearance: Present: cooperative - EENT Eyes: Present: EOMI ENT: Present: hearing grossly normal - Neck Neck: Present: normal ROM - Respiratory Respiratory: bilateral: CTA - Cardiovascular Rhythm: regular Heart sounds: normal: S1, S2 - Integumentary Integumentary: Present: normal turgor - Musculoskeletal Musculoskeletal: Present: gait normal - Psychiatric Psychiatric: Present: A&O x's 3, appropriate affect, intact judgment & insight - Additional findings Additional findings: Breast Exam: sports bra: medium inspection: Asymmetry of the breast, left side larger than right side; bilateral grade 3 ptosis Palpation: Right breast: Postoperative and postradiation changes, no dominant masses or nodules of concern Right axilla: No adenopathy of concern Left breast: Multi-positional exam fibrocystic changes, no dominant masses or notches of concern Left axilla: No adenopathy of concern Assessment and Plan Assessment: Impression: Patient status post right breast lumpectomy and radiation therapy no evidence of recurrent cancer Asymmetry of the breast related to prior cancer surgery Fibrocystic breast changes Bilateral mammograms 724-23 BIRAD 0, needs right breast ultrasound Plan: Right breast ultrasound We have again discussed the asymmetry of the breasts and patient is going to hold off on surgery at this time Follow-up after ultrasound of the right breast Nodular thyroid being evaluated by primary care doctor and ENT CC: Dr. Cazares
== END ==
LOC: WWCWWP 08:33
PROVIDERS: ATTEND Surgery
DX: Z12.31 Encounter for screening mammogram for malignant neoplasm of breast (principal); N60.11 Diffuse cystic mastopathy of right breast; I10 Essential (primary) hypertension; G35 Multiple sclerosis; E04.1 Nontoxic single thyroid nodule; Z80.3 Family history of malignant neoplasm of breast; Z79.899 Other long term (current) drug therapy; Z90.11 Acquired absence of right breast and nipple

== ENCOUNTER → 2022-11-02 | Outpatient (CLI) | payer MEDICARE, OTHER ==
--- NOTE | 2022-11-02 11:32 | US ---
EXAMINATION TYPE: US thyroid st tissue head/neck DATE OF EXAM: 11/02/2022 COMPARISON: 10/07/2022/CT. CLINICAL INDICATION: Female, 72 years old with history of E04.1 NONTOXIC SINGLE THYROID NODULE; hx of lesion seen on MRI/CT, unable to perform FNA via US due to non vis due to location being behind ruth ible GLAND SIZE: Right Lobe: 5.2x1.2x1.7 cm Overall Parenchyma: homogenous Left Lobe: 4.7x1.3x1.5 cm Overall Parenchyma: homogeneous Isthmus Thickness: 0.2 cm NODULES RIGHT: # of nodules measured on right: 1 1. 0.6 X 0.5 x 0.6 cm, lower medial, cystic or almost completely cystic, anechoic nodule, which is taller than wide, with smooth margins, without echogenic foci. TIRADS Score: 0 TIRADS Category 1: Benign Composition: Cystic or almost completely cystic (0 points). Recommendation: No FNA LEFT: # of nodules measured on left: 1 1. 0.6 X 0.6 x 0.5 cm, mid lateral, cystic or almost completely cystic, anechoic nodule, which is w ider than tall, with smooth margins, without echogenic foci. TIRADS Score: 0 TIRADS Category 1: Benign Composition: Cystic or almost completely cystic (0 points). Recommendation: No FNA Bilateral neck scanned, no evidence of lymphadenopathy. several cystic areas noted throughout bilaterally, largest in each lobe measured. Area seen on MRI/CT again not seen via US IMPRESSION: No suspicious thyroid nodules.
== END | disposition home or self-care (01) ==
LOC: RADUSWWP 09:55
PROVIDERS: ATTEND Family Medicine
DX: E04.1 Nontoxic single thyroid nodule (principal)
CPT/HCPCS: 76536

== ENCOUNTER → 2022-11-02 | Outpatient (CLI) | payer MEDICARE, OTHER ==
--- NOTE | 2022-11-02 09:59 | USB ---
Reason for Exam: Additional evaluation requested from abnormal screening. Patient History: Menarche at age 11. First Full-Term at age 20. Postmenopausal. Breast cancer, right, age 49. 2014, Benign Excisional Biopsy on the left side. 1999, Lumpectomy on the Right side. 1999, Radiation Therapy. Maternal aunt had breast cancer, age 50. Mother had breast cancer, age 50. Technique: Method: Targeted. Patient Position: Supine. Prior Study Comparison: 10/26/2020 Bilateral Screening Mammogram, [facility]. 10/28/2021 Bilateral MG 3D screening mammo w/cad, [facility]. 10/31/2022 Bilateral MG 3D screening mammo w/cad, [facility]. Findings: The lateral section of the breast of the right breast and the retroareolar of the right breast were scanned. Imaged: Ultrasound imaging of: Area of concern, retroareolar region and axilla. Hypoechoic lesion of right breast 10:00 3 cm the nipple measuring 11 x 9 x 5 mm which could represent fat necrosis. Additional hypoechoic lesion 11:00 3 cm from the nipple measuring 7 x 6 mm. This can also be reassessed in 3 months. ASSESSMENT : 3 - Probably Benign. Management: Diagnostic Breast Ultrasound of the right breast in 3 months. There are 2 small areas within the breasts which could represent postprocedural change. Short-term follow-up in 3 months recommended to ensure stability. A clinical breast exam by your physician is recommended on an annual basis and results should be correlated with mammographic findings. This exam should not preclude additional follow-up of suspicious palpable abnormalities. Results were given to the patient verbally at the time of exam. Electronically signed and approved by: Jack Johnson DO
== END | disposition home or self-care (01) ==
LOC: RADUSWWP 09:03
PROVIDERS: ATTEND Surgery
DX: R92.8 Other abnormal and inconclusive findings on diagnostic imaging of breast (principal); Z85.3 Personal history of malignant neoplasm of breast; Z78.0 Asymptomatic menopausal state; Z80.3 Family history of malignant neoplasm of breast

== ENCOUNTER → 2022-11-30 | Outpatient (CLI) | payer MEDICARE, OTHER ==
--- NOTE | 2022-11-30 10:41 | MR ---
EXAMINATION TYPE: MR brain wo/w con DATE OF EXAM: 11/30/2022 COMPARISON: 12/27/2021 HISTORY: Multiple sclerosis, 1 year follow-up. TECHNIQUE: Multiplanar, multisequence images of the brain and brainstem is performed without and with IV contras t, utilizing 6 mL intravenous Gadavist . FINDINGS: Diffusion weighted images demonstrate no evidence of a recent infarct or other diffusion ab normality. Moderate generalized degenerative change with numerous focal areas and areas of abnormal s ignal compatible with remote white matter ischemia. Total number of lesions is difficult to count given the confluent nature. Largest lesion in the high right frontal lobe measures 1.1 cm on the right and left centrum semioval lesion measuring 5.3 mm. No enhancing lesions. Midline structures demonstrate normal morphology. The craniocervical junction appears within normal limits. Post contrast images demonstrate no abnormal enhancement. The dural venous sinuses appear pa tent. Changes of chronic sinusitis. Orbits are symmetric. There is advanced arthropathy in the left axilla are posterior annulus. This encroaches upon the CSF space and no definite contact the spinal cord. Fi ndings stable. Partially empty sella turcica. No enhancing intracranial lesions are seen. Nonspecific lesions adjacent to the deep lobe of the righ t parotid gland measuring 2.7 cm and within the parotid gland on the left at 7.8 mm. This could refle ct lymph nodes. Lesions of other etiology are not excluded. Contrast CT of the neck is advised. IMPRESSION: 1. Degenerative and nonspecific white matter changes unchanged from prior exam. Differential diagnosi s includes demyelinating process as well as remote microvascular ischemia. 2. Stable nonspecific lesions involving the bilateral parotid space. Recommend CT of the soft tissue neck with contrast for further evaluation as clinically warranted. Th ere is a recent PET scan reported no hypermetabolic uptake in the neck.
== END | disposition home or self-care (01) ==
LOC: RADMRIMAIN 09:25
PROVIDERS: ATTEND Psychiatry & Neurology Neurology
DX: G35 Multiple sclerosis (principal); G93.89 Other specified disorders of brain; R90.82 White matter disease, unspecified
CPT/HCPCS: 70553; A9585

== ENCOUNTER → 2023-02-03 | Outpatient (CLI) | payer MEDICARE, OTHER ==
--- NOTE | 2023-02-03 10:43 | USB ---
Reason for Exam: Follow-up at short interval from prior study. Patient History: Menarche at age 11. First Full-Term at age 20. Postmenopausal. Breast cancer, right, age 49. 2014, Benign Excisional Biopsy on the left side. 1999, Lumpectomy on the Right side. 1999, Radiation Therapy. Maternal aunt had breast cancer, age 50. Mother had breast cancer, age 50. Technique: Method: Targeted. Prior Study Comparison: 10/26/2020 Bilateral Screening Mammogram, [facility]. 10/28/2021 Bilateral MG 3D screening mammo w/cad, [facility]. 10/31/2022 Bilateral MG 3D screening mammo w/cad, [facility]. Findings: The upper outer quadrant of the right breast, the axilla of the right breast and the retroareolar of the right breast were scanned. Targeted ultrasound of the right breast from 10-12 o'clock with additional evaluation of the nipple and axillary tail was performed. Calcification with shadowing identified in the right breast at 10:00 3 cm from the nipple measuring 0.5 x 0.3 x 0.5 cm. Redemonstration of irregular mass within the right breast at 11:00 3 cm of the nipple measuring 0.8 x 0.5 x 1.2 cm. No internal color flow identified. There is questionable posterior acoustic shadowing. Echogenic halo identified with microlobulated borders suggested. Other lesion within the right breast on prior ultrasound at 11:00 is not definitively visualized on today's exam. Overall Assessment: Suspicious, BI-RAD 4 Management: Ultrasound Core Biopsy of the right breast. A clinical breast exam by your physician is recommended on an annual basis and results should be correlated with mammographic findings. This exam should not preclude additional follow-up of suspicious palpable abnormalities. Results were given to the patient verbally at the time of exam. Electronically signed and approved by: Micha Sanchez D.O.
== END | disposition home or self-care (01) ==
LOC: RADUSWWP 10:12
PROVIDERS: ATTEND Surgery
DX: R92.8 Other abnormal and inconclusive findings on diagnostic imaging of breast (principal); Z85.3 Personal history of malignant neoplasm of breast; Z80.3 Family history of malignant neoplasm of breast

== ENCOUNTER → 2023-02-10 | Outpatient (CLI) | payer MEDICARE, OTHER ==
--- NOTE | 2023-02-10 08:46 | US ---
EXAMINATION TYPE: US thyroid st tissue head/neck DATE OF EXAM: 02/10/2023 COMPARISON: US 11/02/2022, CT 01/23/2023 CLINICAL INDICATION: Female, 72 years old with history of E04.1 NONTOXIC SINGLE THY NOD; Nodule. GLAND SIZE: Right Lobe: 5.4 x 1.7 x 1.8 cm Overall Parenchyma: homogeneous Left Lobe: 5.0 x 1.7 x 1.6 cm Overall Parenchyma: homogeneous Isthmus Thickness: 0.2 cm NODULES RIGHT: # of nodules measured on right: 1 1. 0.8 X 0.7 x 0.5 cm, lower medial, cystic or almost completely cystic, anechoic nodule, which is wider than tall, with smooth margins, with echogenic foci. Prior size: 0.6 x 0.5 x 0.6 cm LEFT: # of nodules measured on left: 2 1. 0.7 X 0.6 x 0.6 cm, lower lateral, cystic or almost completely cystic, anechoic nodule, which is as wide as it is tall, with smooth margins, with echogenic foci. Prior size: Does not correlate with prior. 2. 0.7 X 0.7 x 0.6 cm, mid lateral, cystic or almost completely cystic, anechoic nodule, which is wider than tall, with smooth margins, with echogenic foci. Prior size: 0.6 x 0.6 x 0.5 cm ISTHMUS: # of nodules measured in the isthmus: 0 Bilateral neck scanned, no evidence of lymphadenopathy. IMPRESSION: 1. No suspicious enlarged nodules. Small cystic nodules present.
== END | disposition home or self-care (01) ==
LOC: RADUSWWP 07:27
PROVIDERS: ATTEND Otolaryngology
DX: E04.2 Nontoxic multinodular goiter (principal)
CPT/HCPCS: 76536

== ENCOUNTER → 2023-02-16 | Day surgery (SDC) | payer MEDICARE, OTHER ==
--- NOTE | 2023-02-21 14:40 | MM ---
Reason for Exam: Post Procedure Mammogram. Last screening mammogram was performed 4 month(s) ago. Patient History: Menarche at age 11. First Full-Term at age 20. Postmenopausal. Breast cancer, right, age 49. 2014, Benign Excisional Biopsy on the left side. 1999, Lumpectomy on the Right side. 1999, Radiation Therapy. Maternal aunt had breast cancer, age 50. Mother had breast cancer, age 50. Prior Study Comparison: 10/26/2020 Bilateral Screening Mammogram, [facility]. 10/28/2021 Bilateral MG 3D screening mammo w/cad, [facility]. 10/31/2022 Bilateral MG 3D screening mammo w/cad, [facility]. Tissue Density: Right: There are scattered fibroglandular densities. Pathology Description: Location: 11 o'clock, upper outer quadrant. Marker Left Behind. Needle Type: Mammotome Cores: 4 Skin Nicks: 1 Gauge: 13 The procedure of ultrasound guided core biopsy was explained to the patient. Benefits, alternatives, and risks were discussed. An informed consent was then obtained. The patient was placed in supine positioning for imaging and for the procedure. The overlying skin was prepped and draped in usual sterile fashion. Lidocaine was used as anesthetic into the skin and subcutaneous tissue up to area of concern in the right breast. A demetri was made with surgical scalpel. Under ultrasound guidance, a 12-gauge vacuum assisted biopsy gun device was used to obtain 4 core samples. Following this, a biopsy clip was left in lesion. The patient tolerated the procedure well without any immediate complication. The patient was kept in the radiology department for short stay after the procedure and then discharged home in stable condition. Postprocedure mammogram: The patient was transferred to mammography for physician ordered post procedure mammogram for clip placement verification. Impression: Successful, uncomplicated ultrasound guided core biopsy of area of concern in the right breast, full pathology results to follow. Pathology Results: Result: Benign, Fat necrosis. RIGHT BREAST, 11:00 POSITION, ULTRASOUND GUIDED CORE BIOPSY: Fibrous scar with chronic inflammation and fat necrosis (see note). Current specimen negative for diagnostic in situ or invasive carcinoma. Notes It is noted the patient has imaging evidence of an irregular mass within the right breast at the 11:00 position measuring up to 1.2 cm. Examination of the current specimen shows scar, fibrosis and inflamed fat necrosis without diagnostic evidence of malignancy. Clinical correlation with imaging studies is suggested, and re-biopsy can be performed, if clinically indicated. Intradepartmental consultation with Dr. Handy Ramos is in agreement with the assessment. Overall Assessment: Benign Assessment: MG diagnostic mammo RT wo CAD - Right: Benign, BI-RAD 2. Management: Diagnostic Mammogram of the right breast in 6 months. Diagnostic Breast Ultrasound of the right breast in 6 months. Electronically signed and approved by: Jack Johnson DO
== END ==
LOC: RADUSWWP 12:36
PROVIDERS: ATTEND Surgery
DX: N64.1 Fat necrosis of breast (principal)
CPT/HCPCS: 88305; 77065; 19083; A4648

== ENCOUNTER → 2023-02-24 | Outpatient (CLI) | payer MEDICARE, OTHER ==
--- NOTE | 2023-02-24 12:09 | P.PN ---
Subjective Progress Note Date: 02/24/23 Subjective Principal diagnosis: surveillance right breast cancer 1999 Chula is a 72-year-old white female status post right breast lumpectomy with radiation treatment in approximately 1999. She had a repeat biopsy of the right breast negative for cancer. Patient several years ago had a biopsy of the left breast which was consistent with scar tissue. The patient has not had any anti- hormonal or chemotherapy. She is not complaining of any lumps masses or nodules in either breast. She is not complaining of any nipple discharge or skin changes of concern. The patient has a history of multiple sclerosis. Her neurologist retired and she went to see Dr. Reza ordered an MRI of the brain. This revealed an incidental finding of a nodule in the right side of the thyroid. She subsequently saw Dr. Sherman and a PET/CT was done. This did not show any evidence of metastatic disease. Bilateral mammograms 724-23 BIRAD 0, right breast ultrasound 11-02-22 BIRAD 3 The patient comments that her right breast is significantly smaller than her left breast. She is not interested in a reduction of the left side at this time. She had a repeat ultrasound performed on 1020 723. This revealed at the 11 o'clock position 3 cm from the nipple a 0.8 x 1.2 cm irregular lesion. Core biopsy was recommended[place] [id number] this revealed fibrous scar and fat necrosis. However after review with the radiologist there was concern that this was discordant and needle localization and excision was recommended. She does not feel any new lumps masses or nodules of concern in either breast. The ultrasound was reviewed with Dr. Johnson. Hormonal history: Menarche: 11 Pregnancies: 1 at 20 Plastic: No Menopause: 49 control pills: 10 years Hormones: Negative Family history: Mother: Bilateral breast cancer with a recurrence Maternal aunt: Breast cancer Past surgical history: 1. Right breast lumpectomy 2. D&C 3. left breast open biopsy Past medical history: 1. Hypertension 2. Multiple sclerosis 3. nodule in thyroid being worked up by [employer] Social history: Smoking: Negative Alcohol: Negative Drugs: Negative Review of systems: HEENT: Macular degeneration Hematologic: Negative Lungs: Negative Heart: Negative GI: Negative : negative postmenopausal Neurologic: Multiple sclerosis Musculoskeletal: Negative ALLERGIES: Negative Objective - Constitutional General appearance: Present: cooperative - EENT Eyes: Present: EOMI ENT: Present: hearing grossly normal - Neck Neck: Present: normal ROM - Respiratory Respiratory: bilateral: CTA - Cardiovascular Heart sounds: normal: S1, S2 - Gastrointestinal General gastrointestinal: Present: soft - Integumentary Integumentary: Present: normal turgor - Musculoskeletal Musculoskeletal: Present: gait normal - Psychiatric Psychiatric: Present: A&O x's 3, appropriate affect, intact judgment & insight - Additional findings Additional findings: Breast Exam: sports bra: medium inspection: Asymmetry of the breast, left side larger than right side; bilateral grade 3 ptosis Palpation: Right breast: Postoperative and postradiation changes, no dominant masses or nodules of concern Right axilla: No adenopathy of concern Left breast: Multi-positional exam fibrocystic changes, no dominant masses or notches of concern Left axilla: No adenopathy of concern Assessment and Plan Assessment: Impression: Patient status post right breast lumpectomy and radiation therapy no evidence of recurrent cancer on exam Asymmetry of the breast related to prior cancer surgery Fibrocystic breast changes Bilateral mammograms 724-23 BIRAD 0, needs right breast ultrasound; done 11-02-22 BIRAD 3 repeated 02-03-23 leading to an ultrasound core biopsy 02-16-23 benign concern that this is discordant Plan: needle localization excisional biopsy discordant ultrasound abnormality right breast, possible onco-plastic tissue transfer The patient would like to have a reduction of the left breast secondary to the marked asymmetry related to cancer surgery The risk and benefits of the procedure discussed with the patient. Risks include but are not limited to bleeding, infection, reaction to the anesthetic. If the specimen was inadequate further tissue acquisition may be necessary. The patient understands and wishes to proceed. CC: Dr. Cazares
== END ==
LOC: WWCWWP 11:06
PROVIDERS: ATTEND Surgery
DX: R92.8 Other abnormal and inconclusive findings on diagnostic imaging of breast (principal); C50.911 Malignant neoplasm of unspecified site of right female breast; G35 Multiple sclerosis; I10 Essential (primary) hypertension; L76.82 Other postprocedural complications of skin and subcutaneous tissue; N60.12 Diffuse cystic mastopathy of left breast; E04.1 Nontoxic single thyroid nodule; N64.89 Other specified disorders of breast; Z80.3 Family history of malignant neoplasm of breast; Z85.3 Personal history of malignant neoplasm of breast; Z79.899 Other long term (current) drug therapy

== ENCOUNTER 2023-03-01 11:46 | Day surgery (SDC) | payer MEDICARE, OTHER ==
[2023-02-27 15:49] VITALS: BMI 23.8
[~2023-03-01 11:46] MED LIST: LACTATED RINGERS 1,000 ML IV SCH; LIDOCAINE 1% (10MG/ML) FOR IV START INTRADERMA PRN
[2023-03-01] MEDS ORDERED: ONDANSETRON 4 MG/2 ML VIAL ONE (13:11)
[2023-03-01 13:16] VITALS: RESP 16; TEMP 96.8
[2023-03-01] MEDS ORDERED: PROPOFOL 10 MG/ML 20 ML VIAL IV ONE (13:40)
--- NOTE | 2023-03-01 14:05 | P.PCN ---
Date of Procedure: 03/01/23 Procedure(s) Performed: BRIEF HISTORY: Patient is a 72-year-old pleasant white female scheduled for an elective colonoscopy as a part of evaluation of chronic diarrhea for the last several months duration. PROCEDURE PERFORMED: Colonoscopy with random biopsies. PREOPERATIVE DIAGNOSIS: Chronic diarrhea IV sedation per Anesthesia. PROCEDURE: After informed consent was obtained, the patient, was brought into the endoscopy unit. IV sedation was administered by Anesthesia under continuous monitoring. Digital rectal examination was normal. Initially the Olympus CF-160 flexible video colonoscope was then inserted in the rectum, gradually advanced into the cecum without any difficulty. Careful examination was performed as the scope was gradually being withdrawn. Ileocecal valve and the appendiceal orifice were visualized and appeared normal. Prep was excellent. Mucosa of the cecum, ascending colon, transverse colon, descending colon, sigmoid colon, and rectum appeared normal. Scattered sigmoidal diverticulosis. Random biopsies were done from ascending and descending colon to rule out microscopic/collagenous colitis. Retroflexion was performed in the rectum and no lesions were seen. The patient tolerated the procedure well. IMPRESSION: Normal-appearing colon from rectum to cecum no evidence of colorectal neoplasia Scattered sigmoidal diverticulosis. RECOMMENDATIONS: Findings of this examination were discussed with the patient as well as her family. She was advised to follow with the biopsy result. Continue with a high-fiber diet and take fiber supplements on a regular basis. Recommend repeat colonoscopy in 10 years.
[2023-03-01 14:45] VITALS: BP 135/68; PULSE 58
== END 2023-03-01 14:43 | disposition home or self-care (01) ==
LOC: ORWHC2ENDO 11:46
PROVIDERS: ATTEND Internal Medicine Gastroenterology
DX: K57.30 Diverticulosis of large intestine without perforation or abscess without bleeding (principal); K52.9 Noninfective gastroenteritis and colitis, unspecified; I10 Essential (primary) hypertension; E78.5 Hyperlipidemia, unspecified; Z79.899 Other long term (current) drug therapy
CPT/HCPCS: 88305; 45380; J2405; J2704

== ENCOUNTER → 2023-05-08 | Outpatient (CLI) | payer MEDICARE, OTHER ==
[2023-05-08 12:06] LABS: INR 0.9 (<1.2); Partial Thromboplastin Time 25.5 sec (22.0-30.0); Prothrombin Time 10.2 sec (10.0-12.5)
[2023-05-08 14:16] LABS: Appearance,Urine Clear (Clear); Bilirubin,Urine Negative (Negative); Blood,Urine Large (Negative); Color,Urine Colorless; Glucose,Urine (UA) Negative (Negative); Ketones,Urine Negative (Negative); Leukocyte Esterase,Urine Small (Negative); Nitrite,Urine Negative (Negative); PH, Urine 6.5 (5.0-8.0); Protein,Urine Negative (Negative); RBC,Urine 105 /hpf (0-5); Specific Gravity,Urine 1.007 (1.001-1.035); Squamous Epithelial Cell,Urine <1 /hpf (0-4); Urobilinogen,Urine <2.0 mg/dL (<2.0); WBC,Urine 4 /hpf (0-5)
[2023-05-08 18:43] LABS: Basophils # (A) 0.06 X 10*3/uL (0.00-0.10); Basophils % (A) 0.8 %; Eosinophils # (A) 0.31 X 10*3/uL (0.04-0.35); Eosinophils % (A) 4.2 %; HCT 36.9 % (37.2-46.3); HGB 12.3 g/dL (12.0-15.0); Lymphocytes # (A) 1.06 X 10*3/uL (0.90-5.00); Lymphocytes % (A) 14.4 %; MCH 29.6 pg (27.0-32.0); MCHC 33.3 g/dL (32.0-37.0); MCV 88.9 FL (80.0-97.0); Mean Platelet Volume 10.2 FL (9.5-12.2); Monocytes # (A) 0.59 X 10*3/uL (0.20-1.00); NRBC Per 100 WBC 0 X 10*3/uL (0.00-0.01); Neutrophils % (A) 72.2 %; Platelet Count 267 X 10*3/uL (140-440); RBC 4.15 X 10*6/uL (4.10-5.20); RDW 13.2 % (11.5-14.5); WBC 7.35 X 10*3/uL (4.50-10.00)
[2023-05-08 18:54] LABS: ALT 15 U/L (8-44); AST 17 U/L (13-35); Albumin 4.6 g/dL (3.8-4.9); Albumin/Globulin Ratio 1.53 Ratio (1.60-3.17); Alkaline Phosphatase 65 U/L (41-126); BUN/Creat Ratio 23.57 Ratio (12.00-20.00); Blood Urea Nitrogen 16.5 mg/dL (9.0-27.0); Calcium 10.1 mg/dL (8.7-10.3); Carbon Dioxide 25.5 mmol/L (21.6-31.8); Chloride 100 mmol/L (96-109); Glucose 108 mg/dL (70-110); Potassium 4.1 mmol/L (3.5-5.5); Sodium 137 mmol/L (135-145); Total Bilirubin 0.7 mg/dL (0.3-1.2); Total Protein 7.6 g/dL (6.2-8.2)
== END | disposition home or self-care (01) ==
LOC: LABWHC1 11:12
PROVIDERS: ATTEND Family Medicine
DX: Z01.812 Encounter for preprocedural laboratory examination (principal); I44.1 Atrioventricular block, second degree; R73.03 Prediabetes
CPT/HCPCS: 36415; 80053; 81001; 83036; 85025; 85610; 85730

== ENCOUNTER → 2023-05-09 | Day surgery (SDC) | payer MEDICARE, OTHER ==
[2023-05-08 10:36] VITALS: BMI 23.8
[~2023-05-09] MED LIST changes: +HYDROcodone/APAP 5-325MG 1 EACH TAB ONE; +HYDROmorphone 0.5 MG/0.5 ML SYRINGE IVP PRN; +LIDOCAINE 1% INJ 10MG/ML (20 ML MDV) ONE; +MIDAZOLAM 2 MG/2 ML VIAL IV PRN; +PHENYLEPHRINE 10 MG/ML VIAL ONE; +PROPOFOL 10 MG/ML 20 ML VIAL IV ONE; +ePHEDrine 50 MG/ML 1 ML VIAL ONE; +fentaNYL (PF) 50 MCG/ML 2 ML AMP ONE
[2023-05-09] MEDS: LACTATED RINGERS 1,000 ML IV ONE ×2 (07:40→12:03)
[2023-05-09] MEDS: DEXAMETHASONE SOD PHOSPHATE 4 MG/ML 1 ML VIAL IV ONE (07:48)
[2023-05-09] MEDS: FAMOTIDINE 20 MG/2 ML VIAL IVP ONE (08:10)
[2023-05-09] MEDS: ONDANSETRON 4 MG/2 ML VIAL IVP ONE (08:10)
--- NOTE | 2023-05-09 08:55 | P.PN ---
Subjective Progress Note Date: 05/09/23 Principal diagnosis: right breast discordant biopsy/assymetry of breast Chula is a 72-year-old white female status post right breast lumpectomy with radiation treatment in approximately 1999. She had a repeat biopsy of the right breast negative for cancer. Patient several years ago had a biopsy of the left breast which was consistent with scar tissue. The patient has not had any anti- hormonal or chemotherapy. She is not complaining of any lumps masses or nodules in either breast. She is not complaining of any nipple discharge or skin changes of concern. The patient has a history of multiple sclerosis. Her neurologist retired and she went to see Dr. Reza ordered an MRI of the brain. This revealed an incidental finding of a nodule in the right side of the thyroid. She subsequently saw Dr. Sherman and a PET/CT was done. This did not show any evidence of metastatic disease. Bilateral mammograms 724-23 BIRAD 0, right breast ultrasound 11-02-22 BIRAD 3 The patient comments that her right breast is significantly smaller than her left breast. She would like to have a reduction of the left side at this time. She had a repeat ultrasound performed on 1020 723. This revealed at the 11 o'clock position 3 cm from the nipple a 0.8 x 1.2 cm irregular lesion. Core biopsy was [place] [id number] this revealed fibrous scar and fat necrosis. However after review with the radiologist there was concern that this was discordant and needle localization and excision was recommended. She does not feel any new lumps masses or nodules of concern in either breast. The ultrasound was reviewed with Dr. Johnson. Hormonal history: Menarche: 11 Pregnancies: 1 at 20 Plastic: No Menopause: 49 control pills: 10 years Hormones: Negative Family history: Mother: Bilateral breast cancer with a recurrence Maternal aunt: Breast cancer Past surgical history: 1. Right breast lumpectomy 2. D&C 3. left breast open biopsy Past medical history: 1. Hypertension 2. Multiple sclerosis 3. nodule in thyroid being worked up by [employer] Social history: Smoking: Negative Alcohol: Negative Drugs: Negative Review of systems: HEENT: Macular degeneration Hematologic: Negative Lungs: Negative Heart: Negative GI: Negative : negative postmenopausal Neurologic: Multiple sclerosis Musculoskeletal: Negative ALLERGIES: Negative Objective - Vital Signs Vital signs: Vital Signs Temp 96.7 F L 01/30/24 07:26 Pulse 57 L 05/09/23 07:26 Resp 20 05/09/23 07:26 BP 149/70 05/09/23 07:26 Pulse Ox 98 05/09/23 07:26 FiO2 Intake & Output 05/08/23 05/09/23 05/09/23 18:59 06:59 18:59 Weight 58.967 kg 60.1 kg - Constitutional General appearance: Present: cooperative - EENT Eyes: Present: EOMI ENT: Present: hearing grossly normal - Neck Neck: Present: normal ROM - Respiratory Respiratory: bilateral: CTA - Cardiovascular Heart sounds: normal: S1, S2 - Integumentary Integumentary: Present: normal turgor - Musculoskeletal Musculoskeletal: Present: gait normal - Psychiatric Psychiatric: Present: A&O x's 3, appropriate affect, intact judgment & insight - Additional findings Additional findings: Breast Exam: sports bra: medium inspection: Asymmetry of the breast, left side larger than right side; bilateral grade 3 ptosis Palpation: Right breast: Postoperative and postradiation changes, no dominant masses or nodules of concern Right axilla: No adenopathy of concern Left breast: Multi-positional exam fibrocystic changes, no dominant masses or nodules of concern Left axilla: No adenopathy of concern Assessment and Plan Assessment: Impression: Patient status post right breast lumpectomy and radiation therapy no evidence of recurrent cancer on exam Asymmetry of the breast related to prior cancer surgery Fibrocystic breast changes Bilateral mammograms 724-23 BIRAD 0, needs right breast ultrasound; done 11-02-22 BIRAD 3 repeated 02-03-23 leading to an ultrasound core biopsy 02-16-23 benign concern that this is discordant Plan: needle localization excisional biopsy discordant ultrasound abnormality right breast, possible onco-plastic tissue transfer The patient would like to have a reduction of the left breast secondary to the marked asymmetry related to cancer surgery The risk and benefits of the procedure discussed with the patient. Risks include but are not limited to bleeding, infection, reaction to the anesthetic. If the specimen was inadequate further tissue acquisition may be necessary. The patient understands and wishes to proceed. Patient is given the option of seeing a plastic surgeon regarding the left breast reduction mammoplasty and has declined. Risk of this include bleeding, infection, reaction to the anesthetic. Additionally the patient understands she may have some necrosis of the nipple areolar complex or loss of the nipple areolar complex. She wishes to proceed. CC: Dr. Cazares
[2023-05-09] MEDS: LIDOCAINE 1% INJ 10MG/ML (20 ML MDV) SQ ONE ×2 (09:20→09:35)
[2023-05-09] MEDS: HEPARIN SODIUM,PORCINE 5,000 UNIT/ML 1 ML VIAL SQ PRN (09:45)
--- NOTE | 2023-05-09 12:22 | P.OP ---
Date of Procedure: 05/09/23 Preoperative Diagnosis: Discordant radiographic abnormality right breast/asymmetry of the breast secondary to prior right breast lumpectomy for cancer Postoperative Diagnosis: Same Procedure(s) Performed: Right breast needle localization lumpectomy, left breast reduction mammoplasty Anesthesia: VIANEYA Surgeon: Veronica Sahu Estimated Blood Loss (ml): 30 IV fluids (ml): 900 Pathology: other (Right breast tissue, left breast reduction mammoplasty tissue) Condition: stable Disposition: same day Indications for Procedure: Right breast ultrasound core biopsy discordant/left breast asymmetry secondary to prior right breast lumpectomy for cancer Operative Findings: Dense breast tissue Description of Procedure: Patient is a 72-year-old female who underwent a right breast lumpectomy and radiation therapy for carcinoma in approximately 1999. She recently underwent a right breast ultrasound core biopsy which was felt to be discordant. Needle localization and lumpectomy in the right breast was recommended. Additionally the patient had asymmetry of the breast secondary to her prior right breast lumpectomy and radiation therapy. The patient therefore is undergoing a needle localization lumpectomy of the right breast and a left breast reduction mammoplasty. The patient was first seen in the preoperative area for markings were placed for a Chua pattern reduction mammoplasty on the left. The patient was sent to the radiology department where a needle localization of the area of concern in the right breast was performed. The patient was then brought to the operative suite. Following induction of anesthesia the right breast was approached. An incision was made and carried down to the shaft of the needle. Surrounding tissue was excised. The specimen was painted for orientation. The wound was irrigated and after we are sure that hemostasis was attained titanium clips were placed. The specimen was sent to x-ray and confirmation that the area of concern had been removed was obtained. The defect was closed in layers. Following this the subcutaneous tissue was closed using a 3-0 Vicryl suture. This was followed by closure of the skin with a 4-0 Monocryl. Following this the area of the left breast was approached. Surgeons gloves were changed as were instruments. Markings placed in the preoperative area where for a Chua pattern reduction inferior pedicle mammoplasty. Utilizing the markings placed in the preoperative area depithelialization of the inferior pedicle was performed. The medial tissue resection was then performed. This was performed down to the pectoralis muscle. The lateral tissue resection was then performed. After we are sure that hemostasis was attained a BRAXTON drain was placed laterally. This was secured using a nylon suture. The inferior pedicle was secured to the pectoralis muscle using 3-0 Vicryl suture. The medial and lateral skin flaps were brought together using interrupted Vicryl suture. This was followed by interrupted running Vicryl subcuticular suture. A 4-0 Monocryl subcutaneous suture was then placed. The nipple areolar complex had been marked preoperatively with a [email or web address] cutter. This was to match the right side. Following closure of the flaps the nipple areolar complex was matured. A nez perce was cut at the apex of the vertical limb and the nipple areolar complex was matured. This was secured using 3-0 Vicryl suture followed by 4-0 Monocryl. Surgical glue was then placed on the incisions. All instrument and sponge counts were correct at the end of the case. The patient tolerated the procedure in stable condition.
[2023-05-09 12:41] VITALS: TEMP 97.4
[2023-05-09] MEDS: HYDROcodone/APAP 5-325MG 1 EACH TAB PO ONE (13:46)
[2023-05-09 14:33] VITALS: BP 141/58; PULSE 77; RESP 16
--- NOTE | 2023-05-16 07:37 | MM ---
Reason for Exam: Post Procedure Mammogram. Last screening mammogram was performed 6 month(s) ago. Patient History: Menarche at age 11. First Full-Term at age 20. Postmenopausal. Breast cancer, right, age 49. 02/16/2023, Benign US biopsy breast VAD RT on the right side. 2014, Benign Excisional Biopsy on the left side. 1999, Lumpectomy on the Right side. 1999, Radiation Therapy. Maternal aunt had breast cancer, age 50. Mother had breast cancer, age 50. Prior Study Comparison: 10/28/2021 Bilateral MG 3D screening mammo w/cad, [facility]. 10/31/2022 Bilateral MG 3D screening mammo w/cad, [facility]. 02/16/2023 Right MG diagnostic mammo RT wo CAD, [facility]. Tissue Density: Right: There are scattered fibroglandular densities. Findings: us wire loc. Pathology Description: Location: 11 o'clock. Needle Type: 5 cm [place] Previous discordant biopsy. Informed consent was obtained and all the patient's questions were answered. The lesion in question was localized sonographically The standard sterile technique was utilized, as well as appropriate local anesthesia with 1% Lidocaine and bicarbonate. Localization needle followed by placement of a guidewire was performed under sonographic guidance. Verification images demonstrate appropriate deployment of the guidewire. The patient tolerated the procedure well and left the department in stable condition. Specimen radiograph demonstrates the mass and clip in question to reside within the specimen. IMPRESSION: Successful needle localization and open biopsy right breast with pathology results pending. Pathology Results: Result: High risk, Atypical ductal hyperplasia. A. RIGHT BREAST, EXCISION/LUMPECTOMY: Focal atypical ductal hyperplasia (ADH) and focal flat epithelial atypia (FEA). See note. Biopsy site change with chronic inflammation, calcification, fat necrosis and fibrous scar. Fibrocystic change with columnar cell change present. All margins benign and negative for malignancy. B. LEFT BREAST SKIN AND TISSUE, REDUCTION MAMMOPLASTY: Skin with benign seborrheic keratoses x 2. Benign mammary tissue with fibrocystic change and fibrosis. Notes Examination of sequential sections in specimen A from the right breast shows an approximate 1 mm area of atypical ductal hyperplasia having low grade nuclear atypia and atypical intraductal proliferation involving the majority of an approximate 1 mm area in block A12. This atypical glandular focus measure approximately 1.5 mm from the closest superior and posterior margin junction. Adjacent to this is focal flat epithelial atypia which measures approximately 1.5 mm from the closest posterior margin in block A13. All margins are negative for atypia or malignancy. Biopsy site change with associated scar, chronic inflammation and fat necrosis is seen separate from the focal area of atypia, and no atypical features are seen within the area of biopsy site change. The prior right breast 11 o'clock core biopsy with case # [id number] is reviewed and shows no features of atypia or malignancy. In order to confirm the diagnosis, immunostaining with CK5/6 is performed with appropriate controls on block A12. CK5/6 staining on block A12 shows mostly negative staining within intraductal cells with atypia, and surrounding myoepithelial cells are positive within this area. This finding supports the diagnosis. Overall Assessment: High risk Assessment: MG diagnostic mammo RT wo CAD - Right: Benign, BI-RAD 2. Management: Diagnostic Mammogram of the right breast in 6 months. Electronically signed and approved by: Wily Caldwell M.D. Radiologis
== END | disposition home or self-care (01) ==
LOC: OR 07:00
PROVIDERS: ATTEND Surgery
DX: N60.91 Unspecified benign mammary dysplasia of right breast (principal); N65.1 Disproportion of reconstructed breast; L82.1 Other seborrheic keratosis; I10 Essential (primary) hypertension; E78.5 Hyperlipidemia, unspecified; Z79.899 Other long term (current) drug therapy; Z85.3 Personal history of malignant neoplasm of breast; Z48.3 Aftercare following surgery for neoplasm
CPT/HCPCS: 19301; 19318; 88305; 88342; 88307; 77065; 76098; 19285; C1819; J1644; J1100; J2405; J2001; J3010; J3490; J2704; J2371

== ENCOUNTER 2023-05-11 18:29 | Emergency (ER) | payer MEDICARE, OTHER ==
[2023-05-11 18:46] VITALS: RESP 16; TEMP 98.9
--- NOTE | 2023-05-11 18:53 | ED ---
Skin/Abscess/FB HPI - General Source: patient, family, RN notes reviewed Mode of arrival: ambulatory Limitations: no limitations <Emily Gamboa - Last Filed: 05/11/23 18:52> <Austin Kang - Last Filed: 05/11/23 21:12> - General Chief complaint: Skin/Abscess/Foreign Body Stated complaint: drainage tube concerns Time Seen by Provider: 05/11/23 18:52 - History of Present Illness Initial comments: Patient is a 72-year-old female presented ER with a chief complaint of postop issue. Patient underwent a breast reduction on Monday by Dr. Loredo. She states today her drain was clogged and she was able to resolve it. Patient then noted that with a drain inserted skin has been draining blood. Patient d enies any fevers, chills, night sweats. (Emily Gamboa) 72-year-old female presenting to the ED with a chief complaint of wound evaluation. Patient had a breast reduction on Monday by Dr. Loredo. Had a BRAXTON drain placed after this. States otherwise over the past few days has been draining however noticed today instead of draining it has been leaking around the drainage tube. No pain. No fever or chills. Otherwise has no other complaints at this time. (Austin Kang) - Related Data Home Medications Medication Instructions Recorded Confirmed Calcium Carbonate [Calcium] 600 mg PO QAM 08/02/18 05/09/23 Multivitamin [Multivitamins Adult 1 each PO QAM 08/02/18 05/09/23 Gummies] Simvastatin [Zocor] 20 mg PO HS 08/02/18 05/09/23 atenoloL 100 mg PO QAM 08/02/18 05/09/23 lisinopriL 40 mg PO QAM 08/02/18 05/09/23 cloNIDine HCL [Catapres] 0.1 mg PO DAILY 01/02/20 05/09/23 hydroCHLOROthiazide 25 mg PO QAM 01/02/20 05/09/23 Previous Rx's Medication Instructions Recorded HYDROcodone/APAP 5-325MG [[place] 5] 1 - 2 each PO Q6HR PRN #10 tab 05/09/23 Allergies Allergy/AdvReac Type Severity Reaction Status Date / Time No Known Allergies Allergy Verified 05/09/23 07:23 Review of Systems ROS Other: All systems not noted in ROS Statement are negative. <Emily Gamboa - Last Filed: 05/11/23 18:52> ROS Other: All systems not noted in ROS Statement are negative. <Austin Kang - Last Filed: 05/11/23 21:12> ROS Statement: Those systems with pertinent positive or pertinent negative responses have been documented in the HPI. Past Medical History Past Medical History: Cancer, Hyperlipidemia, Hypertension Additional Past Medical History / Comment(s): MS diagnosed 1998; RT/LT breast cancer. History of Any Multi-Drug Resistant Organisms: None Reported Past Surgical History: Breast Surgery Additional Past Surgical History / Comment(s): RT breast lumpectomy; D&C; LT breast open biopsy, COLONOSCOPY Past Anesthesia/Blood Transfusion Reactions: Postoperative Nausea & Vomiting (PONV) Past Psychological History: No Psychological Hx Reported Smoking Status: Never smoker - Past Family History Mother Family Medical History: Cancer Additional Family Medical History / Comment(s): breast <Emily Gamboa - Last Filed: 05/11/23 18:52> General Exam Limitations: no limitations <Emily Gamboa - Last Filed: 05/11/23 18:52> General appearance: alert, in no apparent distress Eye exam: Present: normal appearance Neck exam: Present: normal inspection Respiratory exam: Present: normal lung sounds bilaterally Cardiovascular Exam: Present: regular rate, normal rhythm GI/Abdominal exam: Present: soft Neurological exam: Present: alert, oriented X3 Skin exam: Present: other (Breast is soft, nontender. No erythema, warmth, edema. Around the BRAXTON drain there is some serosanguineous drainage. No purulent drainage. No ecchymosis.) <Austin Kang - Last Filed: 05/11/23 21:12> - General Exam Comments Initial Comments: Visual Physical Exam Vital signs reviewed General: Well-appearing, nontoxic, no acute distress. Head: Normocephalic, atraumatic Eyes: PERRLA, EOMI ENT: Airway patent Chest: Nonlabored breathing Skin: No visual rash, normal skin tone Neuro: Alert and oriented 3 Musculoskeletal: No gross abnormalities (Emily Gamboa) Course Vital Signs 05/11/23 18:34 Temperature 98.9 F Pulse Rate 70 Respiratory 16 Rate Blood Pressure 133/67 O2 Sat by Pulse 98 Oximetry Medical Decision Making <Emily Gamboa - Last Filed: 05/11/23 18:52> <Austin Kang - Last Filed: 05/11/23 21:12> - Medical Decision Making I performed the quick note portion of the exam. Electronically signed by Emily Gamboa PA-C (Emily Gamboa) Was pt. sent in by a medical professional or institution (CHERIE Venegas, VENTILATOR SPECIALIST, urgent care, hospital, or [facility]...) When possible be specific @ -No Did you speak to anyone other than the patient for history (EMS, parent, family, police, friend...)? What history was obtained from this source @ -No Did you review nursing and triage notes (agree or disagree)? Why? @ -I reviewed and agree with nursing and triage notes Were old charts reviewed (outside hosp., previous admission, EMS record, old EKG, old radiological studies, urgent care reports/EKG's, [facility] records)? Report findings @ -No old charts were reviewed Differential Diagnosis (chest pain, altered mental status, abdominal pain women, abdominal pain men, vaginal bleeding, weakness, fever, dyspnea, syncope, headache, dizziness, GI bleed, back pain, seizure, CVA, palpatations, mental health, musculoskeletal)? @ -Differential Musculoskeletal Muscular strain, contusion, ligament sprain, fracture, arthritis, septic arthritis, bursitis, cellulitis, muscle spasm, nerve compression, DVT, arterial occlusion, herpes zoster, electrolyte abnormality, tumor.... This is not meant to be in all inclusive list EKG interpreted by me (3pts min.). @ -None X-rays interpreted by me (1pt min.). @ -None done CT interpreted by me (1pt min.). @ -None done U/S interpreted by me (1pt. min.). @ -None done What testing was considered but not performed or refused? (CT, X-rays, U/S, labs)? Why? @ -None What meds were considered but not given or refused? Why? @ -None Did you discuss the management of the patient with other professionals (professionals i.e. Dr., PA, VENTILATOR SPECIALIST, lab, RT, psych nurse, nephrology social worker, mba internship, teacher, animal park code enforcement officer, supportive employment case manager)? Give summary @ -Case discussed with Dr. Joyce Nguyen, who has no further recommendations at this time as long as the breast appears well and is soft/nontender. Advised that the patient may follow-up with her tomorrow morning at 830 to 845 in her office. Was smoking cessation discussed for >3mins.? @ -No Was critical care preformed (if so, how long)? @ -No Were there social determinants of health that impacted care today? How? (Homelessness, low income, unemployed, alcoholism, drug addiction, transportation, low edu. Level, literacy, decrease access to med. care, correction, rehab)? @ -No Was there de-escalation of care discussed even if they declined (Discuss DNR or withdrawal of care, Hospice)? DNR status @ -No What co-morbidities impacted this encounter? (DM, HTN, Smoking, COPD, CAD, Cancer, CVA, ARF, Chemo, Hep., AIDS, mental health diagnosis, sleep apnea, morbid obesity)? @ -Breast cancer Was patient admitted / discharged? Hospital course, mention meds given and route, prescriptions, significant lab abnormalities, going to OR and other pertinent info. @ -Discharge 72-year-old female presenting to the ED with a chief complaint of wound check. Patient notes concern as her BRAXTON drain is no longer draining and instead is leaking around the drain site. Otherwise denies any pain, fever, or chills. Discussed with her surgeon who would advise no further recommendations at this time and would like the patient to follow-up in her office tomorrow morning. At this time vital signs stable afebrile. Discharged home in stable condition and advised to follow-up with her surgeon. Discussed return precautions with patient and family who verbalized agreement. Undiagnosed new problem with uncertain prognosis? @ -No Drug Therapy requiring intensive monitoring for toxicity (Heparin, Nitro, Insulin, Cardizem)? @ -No Were any procedures done? @ -No Diagnosis/symptom? @ -Postop wound check Acute, or Chronic, or Acute on Chronic? @ -Acute Uncomplicated (without systemic symptoms) or Complicated (systemic symptoms)? @ -Uncomplicated Side effects of treatment? @ -No Exacerbation, Progression, or Severe Exacerbation? @ -No Poses a threat to life or bodily function? How? (Chest pain, USA, PA, pneumonia, PE, COPD, DKA, ARF, appy, cholecystitis, CVA, Diverticulitis, Homicidal, Suicidal, threat to staff... and all critical care pts) @ -No (Austin Kang) Disposition <Emily Gamboa - Last Filed: 05/11/23 18:52> Is patient prescribed a controlled substance at d/c from ED?: No Time of Disposition: 20:45 <Austin Knag - Last Filed: 05/11/23 21:12> Clinical Impression: Encounter for postoperative wound check Disposition: HOME SELF-CARE Condition: Good Additional Instructions: Please return to the Emergency Department if symptoms worsen or any other concerns. Please follow-up with Dr. Joyce Sahu in her office at 8:30- 8:45 AM. Referrals: Rick Cazares DO [Primary Care Provider] - 1-2 days
[2023-05-11 21:49] VITALS: BP 132/78; PULSE 86
== END 2023-05-11 21:45 | disposition home or self-care (01) ==
LOC: EC 18:29
DX: Z48.00 Encounter for change or removal of nonsurgical wound dressing (principal); E78.5 Hyperlipidemia, unspecified; I10 Essential (primary) hypertension; Z79.899 Other long term (current) drug therapy
CPT/HCPCS: 99282

== ENCOUNTER → 2023-05-12 | Outpatient (CLI) | payer MEDICARE, OTHER ==
[2023-05-12 09:42] VITALS: BP 145/75; PULSE 68; RESP 18; TEMP 98.4
--- NOTE | 2023-05-12 09:48 | P.PN ---
Progress Note - Text Progress Note Date: 05/12/23 [place] is status post right breast lumpectomy on 05-09-2023 and left breast reduction mammoplasty. Pathology revealed in the right breast focal atypical ductal hyperplasia and focal flat epithelial atypia. No cancer was identified. In the left breast the skin with benign seborrheic changes and benign mammary tissue was noted. The patient's drain on the left side stopped working and she was seen in the emergency department with drainage around the drain. She comes in for evaluation of this today. She is not complaining of any fever or chills. She has minimal discomfort. Lungs: Clear Heart: Regular rate and rhythm Incision: Right breast clean and dry Incision: Left breast clean and dry with some ecchymosis in the inferior flap sites, there is some drainage around the BRAXTON drain the BRAXTON drain is stripped and no additional drainage at the BRAXTON drain is noted. The drain is removed. The patient is doing well. The patient will follow-up next week. Impression: Plug BRAXTON drain left breast Plan: DC BRAXTON drain/done Follow-up next week CC: DR. Cazares
== END ==
LOC: WWCWWP 08:35
PROVIDERS: ATTEND Surgery
DX: N60.91 Unspecified benign mammary dysplasia of right breast (principal); Z98.890 Other specified postprocedural states

== ENCOUNTER → 2023-05-18 | Outpatient (CLI) | payer MEDICARE, OTHER ==
--- NOTE | 2023-05-18 14:05 | P.PN ---
Progress Note - Text Progress Note Date: 05/18/23 Ch[place] is status post right breast lumpectomy on 05-09-2023 and left breast reduction mammoplasty. Pathology revealed in the right breast focal atypical ductal hyperplasia and focal flat epithelial atypia. No cancer was identified. In the left breast the skin with benign seborrheic changes and benign mammary tissue was noted. The patient's drain on the left side stopped working and she was seen in the emergency department with drainage around the drain. She comes in for evaluation of this today. She is not complaining of any fever or chills. She has minimal discomfort. Lungs: Clear Heart: Regular rate and rhythm Incision: Right breast clean and dry Incision: Left breast clean and dry resolving ecchymosis of the inferior flap sites, there is no further drainage from the breast Impression: follow up in two weeks bilateral mammogram in October with appointment CC: DR. Cazares
[2023-05-18 14:36] VITALS: BP 132/76; PULSE 64; RESP 16; TEMP 98.6
== END ==
LOC: WWCWWP 13:51
PROVIDERS: ATTEND Surgery
DX: N60.91 Unspecified benign mammary dysplasia of right breast (principal); L82.1 Other seborrheic keratosis; Z85.3 Personal history of malignant neoplasm of breast; Z98.890 Other specified postprocedural states

== ENCOUNTER → 2023-06-02 | Outpatient (CLI) | payer MEDICARE, OTHER ==
[2023-06-02 08:51] VITALS: BP 115/71; PULSE 59; RESP 15; TEMP 98.5
--- NOTE | 2023-06-02 09:00 | P.PN ---
Progress Note - Text Progress Note Date: 06/02/23 06/01/23 Ch[place] is status post right breast lumpectomy on 05-09-2023 and left breast reduction mammoplasty. Pathology revealed in the right breast focal atypical ductal hyperplasia and focal flat epithelial atypia. No cancer was identified. In the left breast the skin with benign seborrheic changes and benign mammary tissue was noted. She is doing well at this time. She was last seen on 05-18-2023 after the drain in the left breast had stopped working. Lungs: Clear Heart: Regular rate and rhythm Incision: Right breast clean and dry Incision: Left breast clean and dry healing well Impression: bilateral mammogram in October with appointment CC: DR. Cazares
== END ==
LOC: WWCWWP 08:32
PROVIDERS: ATTEND Surgery
DX: Z90.11 Acquired absence of right breast and nipple (principal)

== ENCOUNTER → 2023-07-13 | Outpatient (CLI) | payer MEDICARE, OTHER ==
[2023-07-13 12:22] VITALS: BP 155/74; PULSE 57; RESP 15; TEMP 97.4
--- NOTE | 2023-07-13 12:44 | P.PN ---
Progress Note - Text Progress Note Date: 07/13/23 06/01/23 Ch[place] is status post right breast lumpectomy on 05-09-2023 and left breast reduction mammoplasty. Pathology revealed in the right breast focal atypical ductal hyperplasia and focal flat epithelial atypia. No cancer was identified. In the left breast the skin with benign seborrheic changes and benign mammary tissue was noted. The patient states 2 weeks ago she noticed some drainage from the right inferior breast. This was where a lumpectomy had been performed in approximately 1998. She is not complaining of any fever or chills. Lungs: Clear Heart: Regular rate and rhythm Incision: Right breast clean and dry, incision inferior aspect of the right breast has some drainage which appears to be a seroma Incision: Left breast clean and dry healing well Impression: chronic seroma I&D the area of the seroma at the inferior aspect of the breast was opened and the wound was packed. The cavity was approximately 5 x 5 cm Patient to follow-up tomorrow for changing of the packing Appointment with wound clinic bilateral mammogram in October with appointment CC: DR. Cazares Additional CC's: Rick Cazares
== END ==
LOC: WWCWWP 11:09
PROVIDERS: ATTEND Surgery
DX: N64.89 Other specified disorders of breast (principal); N60.91 Unspecified benign mammary dysplasia of right breast; Z85.3 Personal history of malignant neoplasm of breast; Z98.890 Other specified postprocedural states

== ENCOUNTER → 2023-07-14 | Outpatient (CLI) | payer MEDICARE, OTHER ==
[2023-07-14 09:21] VITALS: BP 145/71; PULSE 52; RESP 15; TEMP 97.4
--- NOTE | 2023-07-14 09:26 | P.CON ---
Consult Note - . Consult date: 07/14/23 Assessment/Plan:: 07-14-23 Ch[place] is status post right breast lumpectomy on 05-09-2023 and left breast reduction mammoplasty. Pathology revealed in the right breast focal atypical ductal hyperplasia and focal flat epithelial atypia. No cancer was identified. In the left breast the skin with benign seborrheic changes and benign mammary tissue was noted. The patient states 2 weeks ago she noticed some drainage from the right inferior breast. This was where a lumpectomy had been performed in approximately 1998. She is not complaining of any fever or chills. 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 Cazares Additional CC's: Rick Cazares
== END ==
LOC: WWCWWP 08:37
PROVIDERS: ATTEND Surgery
DX: Z53.9 Procedure and treatment not carried out, unspecified reason (principal)

== ENCOUNTER → 2023-07-19 | Outpatient (CLI) | payer MEDICARE, OTHER ==
[2023-07-19 08:44] VITALS: BP 127/69; PULSE 48; RESP 15; TEMP 98
--- NOTE | 2023-07-19 09:04 | P.CON ---
Consult Note - . Assessment/Plan:: Consult date: Assessment/Plan:: 07-19-23 Ch[place] is status post right breast lumpectomy on 05-09-2023 and left breast reduction mammoplasty. Pathology revealed in the right breast focal atypical ductal hyperplasia and focal flat epithelial atypia. No cancer was identified. In the left breast the skin with benign seborrheic changes and benign mammary tissue was noted. The patient states 3 weeks ago she noticed some drainage from the right inferior breast. This was where a lumpectomy had been performed in approximately 1998. She is not complaining of any fever or chills. 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 tissue packing changed and taught how to change the packing Appointment wound clinic tomorrow There is some concern on the patient's billing and I have called the billing office they are going to fax us another form which they want to be sent to them regarding the code for the left breast reduction mammoplasty/they state a fax was sent to us on 06-27-2023 which we did not receive this is going to be resent A fax was received from the billing department which was resent to them and we are waiting any other concerns Additionally we have met with Bennie the patient advocate and he is also working on this Appointment two weeks bilateral mammogram in October with appointment CC: DR. Cazares Additional CC's: Rick Cazares
== END ==
LOC: WWCWWP 08:08
PROVIDERS: ATTEND Surgery
DX: Z90.89 Acquired absence of other organs (principal)

== ENCOUNTER → 2023-10-23 | Outpatient (CLI) | payer MEDICARE, OTHER | END | disposition home or self-care (01) | LOC: RADMAMWWP 10:47 | PROVIDERS: ATTEND Surgery | DX: Z53.9 Procedure and treatment not carried out, unspecified reason (principal) ==

== ENCOUNTER → 2023-10-25 | Outpatient (CLI) | payer MEDICARE, OTHER ==
--- NOTE | 2023-10-26 23:47 | BD ---
EXAMINATION TYPE: Axial Bone Density DATE OF EXAM: 10/25/2023 CLINICAL HISTORY: 73 years old Female. ICD-10 CODE: C50.511 Breast cancer Height: 59.7 in Weight: 133 lbs FRAX RISK QUESTIONS: Family History (Parent hip fracture): yes mother MEDICATIONS: Osteoporosis Medications: not now Which medication: Fosamax How Lon years EXAM MEASUREMENTS: Bone mineral densitometry was performed using the [employer] System. Bone mineral density as measured about the Lumbar spine is: ----- L1-L4(G/cm2): 1.043 T Score Values are as follows: ----- L1: -1.5 ----- L2: -0.8 ----- L3: -1.5 ----- L4: -0.9 ----- L1-L4: -1.1 Z Score Values are as follows: ----- L1: 0.4 ----- L2: 1.1 ----- L3: 0.4 ----- L4: 1.0 ----- L1-L4: 0.8 Bone mineral density has: Increased 1.4% since study of: 09/28/2021 Bone mineral density about the R hip (g/cm2): 0.867 Bone mineral density about the L hip (g/cm2): 0.851 T Score values are as follows: -----R Neck: -1.7 -----L Neck: -1.7 -----R Total: -1.1 -----L Total: -1.2 Z Score values are as follows: -----R Neck: 0.3 -----L Neck: 0.3 -----R Total: 0.7 -----L Total: 0.6 Bone mineral density has: Decreased -1.9% since study of: 09/28/2021 FRAX%s: The graph provided illustrates a 20.00% chance for a major osteoporotic fx and a 9.8% chance for the hips probability for fx in 10 years time. IMPRESSION: Osteopenia (T Score between -2.5 and -1). There is slightly increased risk of fracture and the patient may be considered for treatment. Re-Screen 2-5 years. NOTE: T-SCORE=SD OF THE YOUNG ADULT MEAN.
== END | disposition home or self-care (01) ==
LOC: RADBDWWP 14:13
PROVIDERS: ATTEND Internal Medicine Hematology & Oncology
DX: C50.511 Malignant neoplasm of lower-outer quadrant of right female breast (principal); M85.89 Other specified disorders of bone density and structure, multiple sites; Z17.0 Estrogen receptor positive status [ER+]; G35 Multiple sclerosis
CPT/HCPCS: 77080

== ENCOUNTER → 2023-11-08 | Outpatient (CLI) | payer MEDICARE, OTHER ==
--- NOTE | 2023-11-08 10:18 | MM ---
Reason for Exam: Follow-up at short interval from prior study. Last screening mammogram was performed 12 month(s) ago. Patient History: Menarche at age 11. First Full-Term at age 20. Postmenopausal. Breast cancer, right, age 49. Previous Atypical Ductal Hyperplasia at age 72. 05/09/2023, Lumpectomy on the Right side. 05/09/2023, High risk US breast localization RT on the right side. 02/16/2023, Benign US biopsy breast VAD RT on the right side. 2014, Benign Excisional Biopsy on the left side. 1999, Lumpectomy on the Right side. 1999, Radiation Therapy. Maternal aunt had breast cancer, age 50. Mother had breast cancer, age 50. Prior Study Comparison: 10/28/2021 Bilateral MG 3D screening mammo w/cad, [facility]. 10/31/2022 Bilateral MG 3D screening mammo w/cad, [facility]. 11/02/2022 Right US breast workup limited RT, [facility]. 02/03/2023 Right US breast limited RT, [facility]. 02/16/2023 Right MG diagnostic mammo RT wo CAD, [facility]. 05/09/2023 Right MG diagnostic mammo RT wo CAD, [facility]. Tissue Density: The breasts are heterogeneously dense, which may obscure small masses. Findings: Analyzed By CAD. Extensive postoperative distortion right breast with open wound noted. There is skin thickening noted. Left breast that demonstrates benign calcifications. No mass or distortion left breast at this time. Overall Assessment: Benign, BI-RAD 2 Management: Diagnostic Mammogram of both breasts in 1 year. . Results were given to the patient verbally at the time of exam. Patient should continue monthly self-breast exams. A clinical breast exam by your physician is recommended on an annual basis. This exam should not preclude additional follow-up of suspicious palpable abnormalities. Note on Fernanda scores and lifetime risk: 1. A Fernanda score greater than 3% is considered moderate risk. If this is the case, consider specialist referral to assess eligibility for a risk reducing agent. 2. If overall lifetime risk for the development of breast cancer is 20% or higher, the patient may qualify for future screening with alternating mammogram and breast MRI. Electronically signed and approved by: Wily Caldwell M.D. Radiologis
== END | disposition home or self-care (01) ==
LOC: RADMAMWWP 09:42
PROVIDERS: ATTEND Surgery
DX: Z85.3 Personal history of malignant neoplasm of breast (principal); R92.333 Mammographic heterogeneous density, bilateral breasts; Z78.0 Asymptomatic menopausal state; Z80.3 Family history of malignant neoplasm of breast
CPT/HCPCS: 77066; G0279; 77062

== ENCOUNTER → 2024-01-19 | Outpatient (CLI) | payer MEDICARE, OTHER ==
[2024-01-19 12:00] VITALS: BP 145/64; PULSE 81; RESP 16; TEMP 97.9
--- NOTE | 2024-01-19 12:28 | P.PN ---
Subjective Progress Note Date: 01/19/24 Principal diagnosis: right breast cancer at [facility], [place] surveillance right breast cancer 1999 [place] is a 73-year-old white female status post right breast lumpectomy with radiation treatment in approximately 1999. She had a repeat biopsy of the right breast negative for cancer. Patient several years ago had a biopsy of the left breast which was consistent with scar tissue. The patient has not had any anti- hormonal or chemotherapy. She is not complaining of any lumps masses or nodules in either breast. She is not complaining of any nipple discharge or skin changes of concern. The patient has a history of multiple sclerosis. Her neurologist retired and sh tracey went to see Dr. Reza ordered an MRI of the brain. This revealed an incidental finding of a nodule in the right side of the thyroid. She subsequently saw Dr. Sherman and a PET/CT was done. This did not show any evidence of metastatic disease. Bilateral mammograms 11-08-23 BIRAD 2 personally reveiwed She underwent a left reduction mammoplasty and right breast needle local biopsy on 05-09-23. The right breast biopsy showed atypical ductal hyperplasia. The left breast tissue was benign. Post operatively she had some difficulty with wound healing and was seen in the wound clinic. It has healed at this time. She did not use a wound vac. She is on an estrogen nellie. Note from 07-20-2023 wound center reviewed Hormonal history: Menarche: 11 Pregnancies: 1 at 20 Plastic: No Menopause: 49 control pills: 10 years Hormones: Negative Family history: Mother: Bilateral breast cancer with a recurrence Maternal aunt: Breast cancer Past surgical history: 1. Right breast lumpectomy 2. D&C 3. left breast open biopsy 4. left breast mammoplasty Past medical history: 1. Hypertension 2. Multiple sclerosis 3. nodule in thyroid followed by ENT Social history: Smoking: Negative Alcohol: Negative Drugs: Negative Review of systems: HEENT: Macular degeneration Hematologic: Negative Lungs: Negative Heart: Negative GI: Negative : negative postmenopausal Neurologic: Multiple sclerosis Musculoskeletal: Negative ALLERGIES: Negative Objective - Vital Signs Vital signs: Vital Signs Temp 97.9 F 01/19/24 11:58 Pulse 81 01/19/24 11:58 Resp 16 01/19/24 11:58 BP 145/64 01/19/24 11:58 Pulse Ox 97 01/19/24 11:58 FiO2 Intake & Output 01/18/24 01/19/24 01/19/24 18:59 06:59 18:59 Weight 58.06 kg - Constitutional General appearance: Present: cooperative - EENT Eyes: Present: EOMI ENT: Present: hearing grossly normal - Neck Neck: Present: normal ROM - Respiratory Respiratory: bilateral: CTA - Cardiovascular Heart sounds: normal: S1, S2 - Integumentary Integumentary: Present: normal turgor - Musculoskeletal Musculoskeletal: Present: gait normal - Psychiatric Psychiatric: Present: A&O x's 3, appropriate affect, intact judgment & insight - Additional findings Additional findings: Breast Exam: sports bra: medium inspection: bilateral scars on the breast Palpation: Right breast: Postoperative and postradiation changes, no dominant masses or nodules of concern, right breast biopsy site lower inner breast healed Right axilla: No adenopathy of concern Left breast: Multi-positional exam fibrocystic changes, no dominant masses or nodules of concern, well healed scars from prior surgery Left axilla: No adenopathy of concern Assessment and Plan Assessment: Impression: Patient status post right breast lumpectomy and radiation therapy no evidence of recurrent cancer on exam left breast reduction mammoplasty Fibrocystic breast changes Bilateral mammograms 731-24 BIRAD 2 on Aromosine (exmestane) Plan: Aromasin/continue to follow with medical oncology Repeat bilateral mammogram in 1 year will be October 2024 with appointment at that time Follow-up sooner any questions or concerns CC: Dr. Cazares
== END ==
LOC: WWCWWP 11:11
PROVIDERS: ATTEND Surgery

== ENCOUNTER 2024-02-04 10:36 | Observation (INO) | payer MEDICARE, OTHER ==
--- NOTE | 2024-02-04 10:59 | ED ---
General Adult HPI - General Chief complaint: Chest Pain Stated complaint: Chest Pain Time Seen by Provider: 02/04/24 10:46 Source: patient, RN notes reviewed Mode of arrival: ambulatory Limitations: no limitations - History of Present Illness Initial comments: Patient is a 73-year-old female presenting to the emergency department with concerns with chest discomfort. Onset of symptoms was around a week ago. Symptoms are usually worse in the morning and usually worse with exertion. Discomfort at this time is rated 2/10. With exertion gets up to 5/10. Discomfort is described as pressure. No radiation. There is associated dyspnea. No nausea. No diaphoresis. No history of similar symptoms previously - Related Data Home Medications Medication Instructions Recorded Confirmed Calcium Carbonate [Calcium] 600 mg PO DAILY 08/02/18 02/04/24 Multivitamin [Multivitamins Adult 1 tab PO DAILY 08/02/18 02/04/24 Gummies] Simvastatin [Zocor] 20 mg PO HS 08/02/18 02/04/24 lisinopriL 40 mg PO DAILY 08/02/18 02/04/24 cloNIDine HCL [Catapres] 0.1 mg PO DAILY 01/02/20 02/04/24 hydroCHLOROthiazide 25 mg PO DAILY 01/02/20 02/04/24 Exemestane [Aromasin] 25 mg PO DAILY 02/04/24 02/04/24 amLODIPine [Norvasc] 5 mg PO DAILY 02/04/24 02/04/24 atenoloL [Tenormin] 25 mg PO DAILY 02/04/24 02/04/24 Allergies Allergy/AdvReac Type Severity Reaction Status Date / Time No Known Allergies Allergy Verified 02/04/24 12:01 Review of Systems ROS Statement: Those systems with pertinent positive or pertinent negative responses have been documented in the HPI. ROS Other: All systems not noted in ROS Statement are negative. Constitutional: Denies: fever Eyes: Denies: eye pain ENT: Denies: ear pain Respiratory: Reports: as per HPI. Denies: cough Cardiovascular: Reports: as per HPI, chest pain, dyspnea on exertion. Denies: palpitations Endocrine: Denies: fatigue Gastrointestinal: Denies: abdominal pain Musculoskeletal: Denies: back pain Past Medical History Past Medical History: Cancer, Hyperlipidemia, Hypertension Additional Past Medical History / Comment(s): MS diagnosed 1998; RT/LT breast cancer. History of Any Multi-Drug Resistant Organisms: None Reported Past Surgical History: Breast Surgery Additional Past Surgical History / Comment(s): RT breast lumpectomy; D&C; LT breast open biopsy, COLONOSCOPY Past Anesthesia/Blood Transfusion Reactions: Postoperative Nausea & Vomiting (PONV) Past Psychological History: No Psychological Hx Reported Smoking Status: Never smoker Past Alcohol Use History: None Reported Past Drug Use History: None Reported - Past Family History Mother Family Medical History: Cancer Additional Family Medical History / Comment(s): breast General Exam Limitations: no limitations General appearance: alert, in no apparent distress Head exam: Present: normocephalic Eye exam: Present: normal appearance Neck exam: Present: normal inspection Respiratory exam: Present: normal lung sounds bilaterally Cardiovascular Exam: Present: regular rate, normal rhythm, normal heart sounds Expanded Peripheral pulses: 2+: Radial (R), Radial (L), Posterior Tibialis (R), Posterior Tibialis (L) GI/Abdominal exam: Present: soft. Absent: tenderness, pulsatile mass Extremities exam: Present: normal inspection. Absent: pedal edema, calf tenderness Neurological exam: Present: alert Psychiatric exam: Present: normal affect, normal mood Skin exam: Present: normal color Course Vital Signs 02/04/24 02/04/24 10:38 14:18 Temperature 98.4 F Pulse Rate 54 L 54 L Respiratory 18 16 Rate Blood Pressure 142/68 131/73 O2 Sat by Pulse 99 98 Oximetry EKG Findings - EKG Results: EKG: interpreted by ERMD (Left axis. Atrial bradycardia. LVH. Inferior T wave inversion. Inferior Q waves.) EKG shows: bradycardia Medical Decision Making - Medical Decision Making Was pt. sent in by a medical professional or institution (, PA, DRAWER HARDWARE WORKER, urgent care, hospital, or fdc...) When possible be specific @ -No Did you speak to anyone other than the patient for history (EMS, parent, family, police, friend...)? What history was obtained from this source @ - is present and helps provide additional history of previous cardiac evaluation Did you review nursing and triage notes (agree or disagree)? Why? @ -I reviewed and agree with nursing and triage notes Were old charts reviewed (outside hosp., previous admission, EMS record, old EKG, old radiological studies, urgent care reports/EKG's, fdc records)? Report findings @ -No old charts were reviewed Differential Diagnosis (chest pain, altered mental status, abdominal pain women, abdominal pain men, vaginal bleeding, weakness, fever, dyspnea, syncope, headache, dizziness, GI bleed, back pain, seizure, CVA, palpatations, mental health, musculoskeletal)? @ -Differential Chest Pain: Stable Angina, Unstable Angina, STEMI, NSTEMI Aortic Dissection, Pneumothorax, Musculoskeletal, Esophageal Spasm GERD, Cholecystitis, Pancreatitis, Zoster, this is not meant to be an all-inclusive list. EKG interpreted by me (3pts min.). @ -As above X-rays interpreted by me (1pt min.). @ -Chest x-ray shows no acute process CT interpreted by me (1pt min.). @ -None done U/S interpreted by me (1pt. min.). @ -None done What testing was considered but not performed or refused? (CT, X-rays, U/S, labs)? Why? @ -None What meds were considered but not given or refused? Why? @ -None Did you discuss the management of the patient with other professionals (professionals i.e. , PA, DRAWER HARDWARE WORKER, lab, RT, psych nurse, social research assistant, educational psychology professor, teacher, correctional officer, case sealer)? Give summary @ -Case discussed with Dr. Padilla who will admit covering Dr. Sheets for us Was smoking cessation discussed for >3mins.? @ -No Was critical care preformed (if so, how long)? @ -No Were there social determinants of health that impacted care today? How? (Homelessness, low income, unemployed, alcoholism, drug addiction, transportat ion, low edu. Level, literacy, decrease access to med. care, half-way, rehab)? @ -No Was there de-escalation of care discussed even if they declined (Discuss DNR or withdrawal of care, Hospice)? DNR status @ -No What co-morbidities impacted this encounter? (DM, HTN, Smoking, COPD, CAD, Cancer, CVA, ARF, Chemo, Hep., AIDS, mental health diagnosis, sleep apnea, morbid obesity)? @ -None Was patient admitted / discharged? Hospital course, mention meds given and route, prescriptions, significant lab abnormalities, going to OR and other pertinent info. @ -Patient presents with chest discomfort. Additional troponin unremarkable. Patient will be admitted with cardiac evaluation. [place] orders written. Undiagnosed new problem with uncertain prognosis? @ -No Drug Therapy requiring intensive monitoring for toxicity (Heparin, Nitro, Insulin, Cardizem)? @ -No Were any procedures done? @ -No Diagnosis/symptom? @ -Chest pain Acute, or Chronic, or Acute on Chronic? @ -Acute Uncomplicated (without systemic symptoms) or Complicated (systemic symptoms)? @ -Default Side effects of treatment? @ -No Exacerbation, Progression, or Severe Exacerbation? @ -No Poses a threat to life or bodily function? How? (Chest pain, USA, PA, pneumonia, PE, COPD, DKA, ARF, appy, cholecystitis, CVA, Diverticulitis, Homicidal, Suicidal, threat to staff... and all critical care pts) @ -Threat to cardiac function - Lab Data Result diagrams: 02/04/24 11:03 02/04/24 11:03 Lab Results 02/04/24 02/04/24 02/04/24 Range/Units 11:03 11:03 11:03 WBC 7.9 (3.8-10.6) k/uL RBC 4.27 (3.80-5.40) m/uL Hgb 12.6 (11.4-16.0) gm/dL Hct 37.9 (34.0-46.0) % MCV 88.7 (80.0-100.0) fL MCH 29.4 (25.0-35.0) pg MCHC 33.2 (31.0-37.0) g/dL RDW 13.3 (11.5-15.5) % Plt Count 263 (150-450) k/uL MPV 7.4 Neutrophils % 75 % Lymphocytes % 13 % Monocytes % 6 % Eosinophils % 4 % Basophils % 1 % Neutrophils # 5.9 (1.3-7.7) k/uL Lymphocytes # 1.1 (1.0-4.8) k/uL Monocytes # 0.5 (0-1.0) k/uL Eosinophils # 0.3 (0-0.7) k/uL Basophils # 0.1 (0-0.2) k/uL PT 10.3 (10.0-12.5) sec INR 0.9 (<1.2) APTT 24.8 (22.0-30.0) sec D-Dimer 0.42 (<0.60) mg/L FEU Sodium 137 (137-145) mmol/L Potassium 4.6 (3.5-5.1) mmol/L Chloride 105 (98-107) mmol/L Carbon Dioxide 25 (22-30) mmol/L Anion Gap 7 mmol/L BUN 17 (7-17) mg/dL Creatinine 0.72 (0.52-1.04) mg/dL Est GFR (CKD-EPI)AfAm >90 (>60 ml/min/1.73 sqM) Est GFR (CKD-EPI)NonAf 84 (>60 ml/min/1.73 sqM) Glucose 101 H (74-99) mg/dL Calcium 9.4 (8.4-10.2) mg/dL Magnesium 2.0 (1.6-2.3) mg/dL Total Bilirubin 1.3 (0.2-1.3) mg/dL AST 29 (14-36) U/L ALT 14 (4-34) U/L Alkaline Phosphatase 45 (38-126) U/L Troponin I (0.000-0.034) ng/mL NT-Pro-B Natriuret Pep 180 pg/mL Total Protein 7.9 (6.3-8.2) g/dL Albumin 4.7 (3.5-5.0) g/dL 02/04/24 Range/Units 11:03 WBC (3.8-10.6) k/uL RBC (3.80-5.40) m/uL Hgb (11.4-16.0) gm/dL Hct (34.0-46.0) % MCV (80.0-100.0) fL MCH (25.0-35.0) pg MCHC (31.0-37.0) g/dL RDW (11.5-15.5) % Plt Count (150-450) k/uL MPV Neutrophils % % Lymphocytes % % Monocytes % % Eosinophils % % Basophils % % Neutrophils # (1.3-7.7) k/uL Lymphocytes # (1.0-4.8) k/uL Monocytes # (0-1.0) k/uL Eosinophils # (0-0.7) k/uL Basophils # (0-0.2) k/uL PT (10.0-12.5) sec INR (<1.2) APTT (22.0-30.0) sec D-Dimer (<0.60) mg/L FEU Sodium (137-145) mmol/L Potassium (3.5-5.1) mmol/L Chloride (98-107) mmol/L Carbon Dioxide (22-30) mmol/L Anion Gap mmol/L BUN (7-17) mg/dL Creatinine (0.52-1.04) mg/dL Est GFR (CKD-EPI)AfAm (>60 ml/min/1.73 sqM) Est GFR (CKD-EPI)NonAf (>60 ml/min/1.73 sqM) Glucose (74-99) mg/dL Calcium (8.4-10.2) mg/dL Magnesium (1.6-2.3) mg/dL Total Bilirubin (0.2-1.3) mg/dL AST (14-36) U/L ALT (4-34) U/L Alkaline Phosphatase (38-126) U/L Troponin I <0.012 (0.000-0.034) ng/mL NT-Pro-B Natriuret Pep pg/mL Total Protein (6.3-8.2) g/dL Albumin (3.5-5.0) g/dL Disposition Clinical Impression: Chest pain Disposition: ADMITTED IP TO THIS HOSP Is patient prescribed a controlled substance at d/c from ED?: No Referrals: Rick Cazares DO [Primary Care Provider] - 1-2 days Time of Disposition: 14:36
[2024-02-04] MEDS: ASPIRIN 81 MG PO STA (11:06)
[2024-02-04] MEDS: NITROGLYCERIN OINT 1 INCH/GM PACKET TOPICAL STA (11:07)
[2024-02-04 11:12] LABS: Basophils # (A) 0.1 k/uL (0-0.2); Basophils % (A) 1 %; Eosinophils # (A) 0.3 k/uL (0-0.7); Eosinophils % (A) 4 %; HCT 37.9 % (34.0-46.0); HGB 12.6 gm/dL (11.4-16.0); Lymphocytes # (A) 1.1 k/uL (1.0-4.8); Lymphocytes % (A) 13 %; MCH 29.4 pg (25.0-35.0); MCHC 33.2 g/dL (31.0-37.0); MCV 88.7 fL (80.0-100.0); Mean Platelet Volume 7.4; Monocytes # (A) 0.5 k/uL (0-1.0); Monocytes % (A) 6 %; Neutrophils # (A) 5.9 k/uL (1.3-7.7); Neutrophils % (A) 75 %; Platelet Count 263 k/uL (150-450); RBC 4.27 m/uL (3.80-5.40); RDW 13.3 % (11.5-15.5); WBC 7.9 k/uL (3.8-10.6)
[2024-02-04 11:20] LABS: ALT 14 U/L (4-34); African American GFR (CKD) >90 (>60 ml/min/1.73 sqM); Albumin 4.7 g/dL (3.5-5.0); Anion Gap 7 mmol/L; Blood Urea Nitrogen 17 mg/dL (7-17); Calcium 9.4 mg/dL (8.4-10.2); Carbon Dioxide 25 mmol/L (22-30); Chloride 105 mmol/L (98-107); Glucose 101 mg/dL (74-99); Non-African American GFR(CKD) 84 (>60 ml/min/1.73 sqM); Sodium 137 mmol/L (137-145); Total Bilirubin 1.3 mg/dL (0.2-1.3); Total Protein 7.9 g/dL (6.3-8.2)
--- NOTE | 2024-02-04 11:20 | XR ---
EXAMINATION TYPE: XR chest 2V DATE OF EXAM: 02/04/2024 COMPARISON: 02/03/2024 HISTORY: 73-year-old female with chest pain and chest tightness TECHNIQUE: PA and lateral views FINDINGS: Heart mildly enlarged. Multiple surgical clips right axilla and right breast. Mild hyperinflation. No consolidation or pleural effusion. IMPRESSION: Mild cardiomegaly and possible underlying COPD. Previous surgery to the right breast and right axilla . No acute process seen. [facility], , 02/04/2024 11:17 AM
[2024-02-04 11:28] LABS: INR 0.9 (<1.2); NT-Pro-B-Type Natriuretic Pept 180 pg/mL; Partial Thromboplastin Time 24.8 sec (22.0-30.0); Prothrombin Time 10.3 sec (10.0-12.5)
[2024-02-04 11:32] LABS: AST 29 U/L (14-36); Alkaline Phosphatase 45 U/L (38-126); Potassium 4.6 mmol/L (3.5-5.1)
[2024-02-04] MEDS ORDERED: NITROGLYCERIN SL TABS 0.4 MG TAB SUBLINGUAL PRN (14:38)
[2024-02-04] MEDS: ATORVASTATIN 10 MG TAB PO SCH (20:46)
[2024-02-04] MEDS: NITROGLYCERIN OINT 1 INCH/GM PACKET TOPICAL SCH (20:47)
--- NOTE | 2024-02-04 22:57 | P.HPIM ---
History of Present Illness H&P Date: 02/04/24 Chief Complaint: Chest tightness Patient is a 73-year-old female with a known history of breast mass status post right breast needle localization lumpectomy, left breast reduction mammoplasty in April 2023, biopsy showed focal atypical ductal hyperplasia and focal flat epithelial atypia, all margins and benign and negative for malignancy, hypertension, hyperlipidemia, remote history of palpitations with ablation presents to ER with complaints of chest discomfort/tightness and also numbness of the left upper extremity. Symptoms have been present for the past 1 week p atient states that symptoms really gets worked exertional walking. Associated with mild shortness of breath. No nausea vomiting or diaphoresis. No headache or dizziness or lightheadedness. Denied any palpitations. Denied any fever or chills. No cough or sputum production. On admission blood pressure 142/64 pulse is 54 respiration 18 and pulse ox 91% on room air. EKG showed ectopic atrial bradycardia with heart rate 50 Chest x-ray showed mild cardiomegaly and possible underlying COPD. Previous surgery to the right breast and right axilla. No acute process seen. Laboratory data reviewed. Troponin x 3 negative. Blood sugar 101. Liver enzymes are not elevated proBNP 180, D-dimer 0.42 Review of Systems Constitutional: Patient denies any fever or chills . No generalized weakness or weight loss. Abdomen: Patient denied nausea vomiting and diarrhea and abdominal pain. Cardiovascular: Patient denies any chest pain or short of breath no palpitations. Respiratory: patient denied any cough or sputum production. No shortness of breath Neurologic: Patient denied any numbness or tingling. no headache. Musculoskeletal: Patient denies any complaints of joint swelling or deformity. Skin: Negative Psychiatric: Negative Endocrine: No heat or cold intolerance. No recent weight gain. Genitourinary: No dysuria or hematuria. All other 14 point ROS negative except the above Past Medical History Past Medical History: Cancer, Hyperlipidemia, Hypertension Additional Past Medical History / Comment(s): MS diagnosed 1998; RT/LT breast cancer. History of Any Multi-Drug Resistant Organisms: None Reported Past Surgical History: Breast Surgery Additional Past Surgical History / Comment(s): RT breast lumpectomy; D&C; LT b reast open biopsy, COLONOSCOPY Past Anesthesia/Blood Transfusion Reactions: Postoperative Nausea & Vomiting (PONV) Past Psychological History: No Psychological Hx Reported Smoking Status: Never smoker Past Alcohol Use History: None Reported Past Drug Use History: None Reported - Past Family History Mother Family Medical History: Cancer Additional Family Medical History / Comment(s): breast Medications and Allergies Home Medications Medication Instructions Recorded Confirmed Type Calcium Carbonate [Calcium] 600 mg PO DAILY 08/02/18 02/04/24 History Multivitamin [Multivitamins Adult 1 tab PO DAILY 08/02/18 02/04/24 History Gummies] Simvastatin [Zocor] 20 mg PO HS 08/02/18 02/04/24 History lisinopriL 40 mg PO DAILY 08/02/18 02/04/24 History cloNIDine HCL [Catapres] 0.1 mg PO DAILY 01/02/20 02/04/24 History hydroCHLOROthiazide 25 mg PO DAILY 01/02/20 02/04/24 History Exemestane [Aromasin] 25 mg PO DAILY 02/04/24 02/04/24 History amLODIPine [Norvasc] 5 mg PO DAILY 02/04/24 02/04/24 History atenoloL [Tenormin] 25 mg PO DAILY 02/04/24 02/04/24 History Allergies Allergy/AdvReac Type Severity Reaction Status Date / Time No Known Allergies Allergy Verified 02/04/24 12:01 Physical Exam Vitals: Vital Signs Temp Pulse Pulse Resp BP BP Pulse Ox 02/04/24 18:53 97.9 F 60 16 148/75 96 02/04/24 16:48 97.7 F 72 16 143/73 100 02/04/24 16:17 57 L 16 130/70 98 02/04/24 14:18 54 L 16 131/73 98 02/04/24 10:38 98.4 F 54 L 18 142/68 99 Intake and Output 02/04/24 02/04/24 02/04/24 06:59 14:59 22:59 Intake Total 540 Balance 540 Intake: Oral 540 Other: # Voids 1 Weight 58.967 kg 58.967 kg PHYSICAL EXAMINATION: Patient is lying in the bed comfortably, no acute distress, awake alert and oriented.. HEENT: Normocephalic. Neck is supple. Pupils reactive. Nostrils clear. Oral cavity is moist. Neck reveals no JVD, carotid bruits, or thyromegaly. CHEST EXAMINATION: Trachea is central. Symmetrical expansion. Lung wolfe clear to auscultation and percussion. CARDIAC: Normal S1, S2 with no gallops. No murmurs ABDOMEN: Soft. Bowel sounds normal. No organomegaly. No abdominal bruits. Extremities: reveal no edema. No clubbing or cyanosis Neurologically awake, alert, oriented x3 with well-coordinated movements. No focal deficits noted Skin: No rash or skin lesions. Psychiatric: Coperative. Nonsuicidal Musculoskeletal: No joint swelling or deformity. Normal range of motion. Results CBC & Chem 7: 02/04/24 11:03 02/04/24 11:03 Labs: Abnormal Lab Results - Last 24 Hours (Table) 02/04/24 Range/Units 11:03 Glucose 101 H (74-99) mg/dL Thrombosis Risk Factor Assmnt - DVT/VTE Prophylaxis DVT/VTE Prophylaxis: Pharmacologic Prophylaxis ordered - Choose All That Apply Any of the Below Risk Factors Present?: No Other Risk Factors: Yes Each Risk Factor Represents 2 Points: Age 61-74 years Thrombosis Risk Factor Assessment Total Risk Factor Score: 2 Thrombosis Risk Factor Assessment Level: Low Risk Assessment and Plan Assessment: Atypical chest pain. Ruled out ACS. History of right breast lumpectomy and left reduction mammoplasty in April 2023 History of palpitations and ablation several years ago Hypertension Hyperlipidemia DVT prophylaxis with heparin subcu Plan: Patient will be continued on telemonitoring. Serial EKG and troponin x 3. Continue with aspirin, atenolol and other home blood pressure medications including hydrochlorothiazide Catapres. Titrate dose as needed. Cardiology was consulted for evaluation. 2D echocardiogram will be ordered. Continue to follow closely. Time with Patient: Greater than 30
[2024-02-05] MEDS: HEPARIN SODIUM,PORCINE 5,000 UNIT/ML 1 ML VIAL SQ SCH (00:49)
[2024-02-05] MEDS ORDERED: NITROGLYCERIN SL TABS 0.4 MG TAB SUBLINGUAL PRN (07:48)
[2024-02-05] MEDS ORDERED: ALPRAZolam 0.25 MG TAB PO PRN (07:48)
[2024-02-05] MEDS ORDERED: ALPRAZolam 0.5 MG TAB PO PRN (07:48)
[2024-02-05] MEDS ORDERED: atenoloL 25 MG TAB PO SCH (09:00)
[2024-02-05] MEDS: NON FORMULARY DRUG (Exemestane [Aromasin] 25 MG Tablet) PO SCH (09:15)
[2024-02-05] MEDS: SODIUM CHLORIDE 0.9% 1,000 ML in EMPTY BAG 1 BAG IV SCH (09:20)
[2024-02-05] MEDS: ASPIRIN 325 MG TAB PO SCH (09:21)
[2024-02-05] MEDS: MULTIVITAMINS, THERA 1 EACH TAB PO SCH (09:21)
[2024-02-05] MEDS: ASPIRIN 325 MG TAB PO STA (09:21)
[2024-02-05] MEDS: cloNIDine HCL 0.1 MG TAB PO SCH (09:21)
[2024-02-05] MEDS: ATORVASTATIN 80 MG TAB PO STA (09:21)
[2024-02-05] MEDS: lisinopriL 20 MG TAB PO SCH (09:21)
[2024-02-05] MEDS: amLODIPine 5 MG TAB PO SCH (09:21)
[2024-02-05] MEDS: CALCIUM CARBONATE 500 MG CHEWABLE PO SCH (09:21)
[2024-02-05] MEDS: hydroCHLOROthiazide 25 MG TAB PO SCH (10:14)
[2024-02-05 10:33] LABS: Chol/HDL Ratio 4.52 Ratio; LDL Cholesterol,Calculated 75.8 mg/dL (0.0-131.0)
--- NOTE | 2024-02-05 10:37 | P.CRDCN ---
History of Present Illness Consult date: 02/05/24 Consult reason: chest pain History of present illness: This is a 73-year-old female patient of Dr. Harp with past medical history of hypertension, dyslipidemia, aortic insufficiency, AV heart block. We have been asked to evaluate the patient for chest pain. Patient states that she developed chest pain that been going on for the past 2 days and radiated to her left arm and upper back. The pain felt like a tightness. She denies any discomfort at this time. Blood pressure 144/74, heart rate 57, pulse ox 98% on room air. Heart rate in the 30s and 40s during the night. Discussed option of cardiac catheterization with the patient and she is willing to move forward with this. EKG: Sinus mechanism Chest x-ray: No acute process. Mild cardiomegaly and possible underlying COPD. Previous surgery to the right breast and right axilla. Laboratory studies: CBC, D-dimer, electrolytes and renal function all within normal limits. Troponin negative x 3. Liver function tests are normal. proBNP 180. Home cardiac medications: Amlodipine 5 mg daily, atenolol 25 mg daily, clonidine 0.1 mg daily, hydrochlorothiazide 25 mg daily, lisinopril 40 mg daily, simvastatin 20 mg at bedtime. Echocardiogram performed 10/16/2023 revealed normal EF, mild MR, mild , mild to moderate AR, mild to moderate TR, estimated RVSP 37 mmHg. Lexiscan Cardiolite stress test performed 07/11/2019 was normal EF and normal study. Review Of Systems: At the time of my exam: CONSTITUTIONAL: Denies fever or chills. HEENT: Denies blurred vision, vision changes, or eye pain. Denies hemoptysis CARDIOVASCULAR: Denies chest pain. Denies orthopnea. Denies PND. Denies palpitations RESPIRATORY: Denies shortness of breath. GASTROINTESTINAL: Denies abdominal pain. Denies nausea or vomiting. HEMATOLOGIC: Denies bleeding disorders. GENITOURINARY: Denies any blood in urine. SKIN: Denies puritis. Denies rash. Physical examination: Gen: This is a 73-year-old female in no acute distress VS: reviewed HEENT: Head is atraumatic, normocephalic. Pupils equal, round. Sclerae is anicteric. NECK: Supple. No JVD. LUNGS: Clear to auscultation. No wheezes or rhonchi. No intercostal retractions. HEART: Regular rate and rhythm. ABDOMEN: Soft No tenderness. EXTREMITIES: No pedal edema. No calf tenderness. NEUROLOGICAL: Patient is awake, alert and oriented x3. Assessment: Unstable angina Bradycardia with known history of asymptomatic AV heart block Hypertension Dyslipidemia Aortic insufficiency Plan: Resume patient's home cardiac medications Hold atenolol Continue telemetry monitoring Schedule patient for heart catheterization today with Dr. Harp Consult Dr. Rosenberg for bradycardia Further recommendations to follow based upon clinical course Thank you kindly for this consultation. Nurse practitioner note has been reviewed, I agree with documented findings and plan of care. Patient was seen and examined. Past Medical History Past Medical History: Cancer, Hyperlipidemia, Hypertension Additional Past Medical History / Comment(s): MS diagnosed 1998; RT/LT breast cancer. History of Any Multi-Drug Resistant Organisms: None Reported Past Surgical History: Breast Surgery Additional Past Surgical History / Comment(s): RT breast lumpectomy; D&C; LT breast open biopsy, COLONOSCOPY Past Anesthesia/Blood Transfusion Reactions: Postoperative Nausea & Vomiting (PONV) Past Psychological History: No Psychological Hx Reported Smoking Status: Never smoker Past Alcohol Use History: None Reported Past Drug Use History: None Reported - Past Family History Mother Family Medical History: Cancer Additional Family Medical History / Comment(s): breast Medications and Allergies Home Medications Medication Instructions Recorded Confirmed Type Calcium Carbonate [Calcium] 600 mg PO DAILY 08/02/18 02/04/24 History Multivitamin [Multivitamins Adult 1 tab PO DAILY 08/02/18 02/04/24 History Gummies] Simvastatin [Zocor] 20 mg PO HS 08/02/18 02/04/24 History lisinopriL 40 mg PO DAILY 08/02/18 02/04/24 History cloNIDine HCL [Catapres] 0.1 mg PO DAILY 01/02/20 02/04/24 History hydroCHLOROthiazide 25 mg PO DAILY 01/02/20 02/04/24 History Exemestane [Aromasin] 25 mg PO DAILY 02/04/24 02/04/24 History amLODIPine [Norvasc] 5 mg PO DAILY 02/04/24 02/04/24 History atenoloL [Tenormin] 25 mg PO DAILY 02/04/24 02/04/24 History Allergies Allergy/AdvReac Type Severity Reaction Status Date / Time No Known Allergies Allergy Verified 02/04/24 12:01 Physical Exam Vitals: Vital Signs Temp Pulse Pulse Resp BP BP Pulse Ox 02/05/24 02:00 98.0 F 65 17 130/65 97 02/04/24 18:53 97.9 F 60 16 148/75 96 02/04/24 16:48 97.7 F 72 16 143/73 100 02/04/24 16:17 57 L 16 130/70 98 02/04/24 14:18 54 L 16 131/73 98 02/04/24 10:38 98.4 F 54 L 18 142/68 99 Intake and Output 02/04/24 02/05/24 02/05/24 22:59 06:59 14:59 Intake Total 540 Balance 540 Intake: Oral 540 Other: Voiding Method Toilet Toilet # Voids 1 2 Weight 58.967 kg Results 02/04/24 11:03 02/04/24 11:03 Cardiac Enzymes 02/04/24 02/04/24 02/04/24 Range/Units 11:03 11:03 14:54 AST 29 (14-36) U/L Troponin I <0.012 <0.012 (0.000-0.034) ng/mL 02/04/24 Range/Units 17:35 AST (14-36) U/L Troponin I <0.012 (0.000-0.034) ng/mL Coagulation 02/04/24 Range/Units 11:03 PT 10.3 (10.0-12.5) sec APTT 24.8 (22.0-30.0) sec CBC 02/04/24 Range/Units 11:03 WBC 7.9 (3.8-10.6) k/uL RBC 4.27 (3.80-5.40) m/uL Hgb 12.6 (11.4-16.0) gm/dL Hct 37.9 (34.0-46.0) % Plt Count 263 (150-450) k/uL Comprehensive Metabolic Panel 02/04/24 Range/Units 11:03 Sodium 137 (137-145) mmol/L Potassium 4.6 (3.5-5.1) mmol/L Chloride 105 (98-107) mmol/L Carbon Dioxide 25 (22-30) mmol/L BUN 17 (7-17) mg/dL Creatinine 0.72 (0.52-1.04) mg/dL Glucose 101 H (74-99) mg/dL Calcium 9.4 (8.4-10.2) mg/dL AST 29 (14-36) U/L ALT 14 (4-34) U/L Alkaline Phosphatase 45 (38-126) U/L Total Protein 7.9 (6.3-8.2) g/dL Albumin 4.7 (3.5-5.0) g/dL Current Medications Generic Name Dose Route Start Last Admin Trade Name Freq PRN Reason Stop Dose Admin Amlodipine Besylate 5 mg 02/05/24 09:00 Amlodipine 5 Mg Tab PO DAILY [facility] Aspirin 325 mg 02/05/24 09:00 Aspirin 325 Mg Tab PO DAILY [facility] Atorvastatin Calcium 10 mg 02/04/24 21:00 02/04/24 20:46 Atorvastatin 10 Mg Tab PO 10 mg HS [facility] Administration Calcium Carbonate/Glycine 500 mg 02/05/24 09:00 Calcium Carbonate 500 Mg Chewable PO DAILY [facility] Clonidine 0.1 mg 02/05/24 09:00 Clonidine Hcl 0.1 Mg Tab PO DAILY [facility] Heparin Sodium (Porcine) 5,000 unit 02/05/24 00:00 02/05/24 00:49 Heparin Sodium,Porcine 5,000 Unit/Ml 1 Ml Vial SQ Not Given Q8HR [facility] Hydrochlorothiazide 25 mg 02/05/24 09:00 Hydrochlorothiazide 25 Mg Tab PO DAILY [facility] Lisinopril 40 mg 02/05/24 09:00 Lisinopril 20 Mg Tab PO DAILY [facility] Multivitamins 1 each 02/05/24 09:00 Multivitamins, Thera 1 Each Tab PO DAILY [facility] Nitroglycerin 0.4 mg 02/04/24 14:38 Nitroglycerin Sl Tabs 0.4 Mg Tab SUBLINGUAL Q5M PRN Chest Pain Nitroglycerin 1 inch 02/04/24 18:00 02/05/24 05:59 Nitroglycerin Oint 1 Inch/Gm Packet TOPICAL Not Given Q6HR [facility] Non-Formulary Medication 25 mg 02/05/24 09:00 Exemestane [Aromasin] PO DAILY [facility] Intake and Output 02/04/24 02/05/24 02/05/24 22:59 06:59 14:59 Intake Total 540 Balance 540 Intake: Oral 540 Other: Voiding Method Toilet Toilet # Voids 1 2 Weight 58.967 kg 02/04/24 11:03 02/04/24 11:03
[2024-02-05] MEDS: fentaNYL (PF) 50 MCG/ML 2 ML AMP IVP ONE (12:53)
[2024-02-05] MEDS: LIDOCAINE 1% INJ 10MG/ML (20 ML MDV) SQ ONE (12:55)
[2024-02-05] MEDS: VERAPAMIL SYRINGE (5 MG/10 ML) INTRAARTER ONE (12:56)
[2024-02-05] MEDS: HEPARIN SODIUM 1,000 UN/ML (10ML VL) IV ONE (13:00)
[2024-02-05] MEDS: IV FLUID CONTINUATION 1,000 ML IV ONE (13:07)
[2024-02-05] MEDS: IOPAMIDOL-370 200ML BTL INJ ONE (13:07)
[2024-02-05] MEDS: HEPARIN SODIUM,PORCINE 10,000 UNIT in SODIUM CHLORIDE 0.9% 1,000 ML IRRIGATION PRN (13:08)
[2024-02-05] MEDS: HEPARIN SODIUM,PORCINE (1 ML) 2,500 UNIT in SODIUM CHLORIDE 0.9% 250 ML IRRIGATION PRN (13:08)
[2024-02-05] MEDS ORDERED: RX INFO: IV CONTRAST WAS GIVEN 1 EACH MISC MISCELLANE PRN (13:15)
--- NOTE | 2024-02-05 13:19 | P.CARDCATH ---
Date of Procedure: 02/05/24 Description of Procedure: Cardiac Catheterization: The patient is a 73-year-old female with known history of hypertension and hyperlipidemia who presented with symptoms of chest discomfort and no evidence of myocardial infarction. She was evaluated by Dr. Potts. Recommendations were made regarding cardiac catheterization, the risks and the complications were discussed with the patient who is in full understanding and agreement. Procedure Description: Patient was brought to label printer in fasting semi-sedated state after receiving Fentanyl and Benadryl achieiving moderate conscious sedated state. Using Xylocaine Anesthesia and modified Seldinger technique, a 6[place] sheath was introduced in the right radial artery . Subsequently, selective coronary angiography was performed using a 5[place] 3.5 bend Anaya catheter. Multiple views of the coronary artery including hemiaxial views were obtained. The 6 [place] pigtail catheter was used to cross the aortic valve and LVEDP was calculated. Following that, catheter and sheath were removed. Hemostasis was obtained with deployment of vascular band . There was no immediate complication. Patient was returned to room in stable condition. Of note, the patient received a total of 3000 units of intravenous heparin as well as intra-arterial verapamil. Findings: Left main: This is a short size vessel, bifurcating into LAD and left circumflex, left main has no obstructive disease LAD: This is a large size vessel, reaching to the apex, giving rise to 2 diagonal branch, the LAD and its branches have no obstructive disease Left circumflex: This is a large nondominant vessel, giving rise to a large proximal obtuse marginal branch. Distally giving rise to a smaller obtuse marginal branch. The left circumflex and its branches have no obstructive disease RCA: This is a large dominant vessel, bifurcating into PDA and PLV, the right coronary artery and its branches have no obstructive disease Left Ventriculogram: Not performed Hemodynamics: There was no gradient across the aortic valve, LVEDP was 12-16 mmHg Conclusion: 1. Normal coronary arteries 2. Right dominance 3. Normal LVEDP Recommendations: At this time I see no evidence of obstructive CAD to explain her symptoms. Will continue on the present treatment. The findings and the recommendations were discussed with the patient and the family and they were in full understanding and agreement. Duration of sedation is 11 minutes.
[2024-02-05] MEDS: SODIUM CHLORIDE 0.9% 1,000 ML IV SCH (13:31)
[2024-02-05 19:20] VITALS: RESP 16
--- NOTE | 2024-02-05 19:20 | P.EPPROC ---
- EP Procedure Note Electrophysiology Procedure Note: This is Dr. Rosenberg dictating a consult on this patient The patient was interviewed and examined IMPRESSION / ASSESSMENT: Hypertension Normal coronary arteries Recurrent dizzy spells Patient on atenolol and clonidine for hypertension and evidence of blocked PACs AV node Wenckebach block and an occasional Mobitz type II block, all in the early hours of the morning PLAN: Stop atenolol. Avoid using beta-blockers as antihypertensive therapy Avoid clonidine for blood pressure surges Lisinopril 40 mg in the morning along with hydrochlorothiazide Switch amlodipine to 5 mg in the evening and if she has surges in blood pressure then increase the dose of amlodipine to 10 mg p.o. daily at night Started at the antihypertensive medications lisinopril in the morning along with hydrochlorothiazide and amlodipine in the evening. This would minimize fluctuations in blood pressure Check TSH No indication for permanent pacing at this time Follow-up Holter monitor for 2 weeks but only after atenolol is washed out of her system. Holter monitor at follow-up at [facility], NOT at hospital discharge since atenolol was just discontinued. HPI Patient presented with chest discomfort radiating down the left arm and underwent coronary angiography today. No significant coronary artery disease noted Electrophysiology consulted on account of sinus bradycardia and AV block The patient does complain of dizzy spells but only when she stands up. She has never lost consciousness. She also complains of dizziness when she extends her head/neck She has a history of hypertension and decides lisinopril hydrochlorothiazide amlodipine, has also been prescribed clonidine and atenolol Last dose of atenolol was yesterday. ECGs reviewed 1. Sinus bradycardia in the 50s first thing this morning Second EKG shows AV block, spontaneous type II 3. Telemetry shows blocked PAC 4. Telemetry shows evidence of AV node Wenckebach block at 90 4 AM. Around the same time there was 1 episode of Mobitz 2 AV block while sleeping ROS: No fever chills or rigors, no cough, phlegm or expectoration, no nausea, vomiting or diarrhea, no hematuria, dysuria, no musculoskeletal complaints, no strokes or seizures, no skin lesions. EXAMINATION: 115/62 mmHg pulse rate in the 60-80s Head neck examination normal Breath sounds are clear no rhonchi no crackles Extremities warm no edema REVIEW OF LABS, ECG & MEDICAL DATA White count 7.9 thousand, hemoglobin 12.6 Platelet count 263,000 Normal D-dimer Electrolytes normal TSH pending
--- NOTE | 2024-02-06 02:46 | P.PN ---
Subjective Progress Note Date: 02/05/24 Patient is a 73-year-old female with a known history of breast mass status post right breast needle localization lumpectomy, left breast reduction mammoplasty in April 2023, biopsy showed focal atypical ductal hyperplasia and focal flat epithelial atypia, all margins and benign and negative for malignancy, hypertension, hyperlipidemia, remote history of palpitations with ablation presents to ER with complaints of chest discomfort/tightness and also numbness of the left upper extremity. Symptoms have been present for the past 1 week patient states that symptoms really gets worked exertional walking. Associated with mild shortness of breath. No nausea vomiting or diaphoresis. No headache or dizziness or lightheadedness. Denied any palpitations. Denied any fever or chills. No cough or sputum production. On admission blood pressure 142/64 pulse is 54 respiration 18 and pulse ox 91% on room air. EKG showed ectopic atrial bradycardia with heart rate 50 Chest x-ray showed mild cardiomegaly and possible underlying COPD. Previous surgery to the right breast and right axilla. No acute process seen. Laboratory data reviewed. Troponin x 3 negative. Blood sugar 101. Liver enzymes are not elevated proBNP 180, D-dimer 0.42 02/05/2024 Patient is seen follow-up this morning underwent cardiac catheterization with no intervention noted, per Dr. Potts, a consult was placed to Dr. Rosenberg for further evaluation and possible EP study. Patient denies chest pain or shortness of breath and reports to feeling well. Patient currently undergoing catheterization protocol of the right wrist TR band and tolerating thus far. Patient is evaluated by Dr. Rosenberg and cleared and patient may go home. Will await EP evaluation and patient is agreeable to this Review of systems: Constitutional: No reports of fatigue, fever, or chills Cardiovascular: No reports of chest pain or palpitations Respiratory: No reports of shortness of breath or cough GI: No reports of nausea, vomiting, or diarrhea : No reports of dysuria or retention Neurovascular: No reports of weakness or numbness All medications have been reviewed Physical exam: Gen: This is a 73-year-old female who is awake, alert and oriented x 3, well- developed, well-nourished HEENT: Head is atraumatic, normocephalic. Pupils equal, round. Sclerae is anicteric. NECK: Supple. No JVD. No lymphadenopathy. No thyromegaly. LUNGS: Clear to auscultation. No wheezes or rhonchi. No intercostal retractions. HEART: Regular rate and rhythm. No murmur. ABDOMEN: Soft. Bowel sounds are present. No masses. No tenderness. EXTREMITIES: No pedal edema. No calf tenderness. NEUROLOGICAL: Patient is awake, alert and oriented x3. Cranial nerves 2 through 12 are grossly intact. Assessment: Atypical chest pain. Ruled out ACS. Status post cardiac catheterization on 02/05/2024 with no intervention History of right breast lumpectomy and left reduction mammoplasty in April 2023 History of palpitations and ablation several years ago, awaiting cardiology Dr. Rosenberg consult Hypertension history Hyperlipidemia history DVT prophylaxis with heparin subcu GI prophylaxis Full code Plan: Patient will be continued on telemonitoring. Serial EKG and troponin x 3 were negative. Patient evaluated by cardiology underwent cardiac catheterization with no intervention although per Dr. Potts, await evaluation by Dr. Rosenberg as patient has history of ablations. Patient atenolol was discontinued for bradycardia and will need an event monitor placed from the cardiology office in the outpatient setting on follow-up Encouraged increase activity as tolerated Medications adjusted per cardiology and recommend monitoring overnight with p ossible discharge planning in the next 24 hours The impression and plan of care has been dictated by Aliya Triana, Nurse Practitioner as directed. Dr. Antonio MD I have performed a history and examination and MDM of this patient, discussed the same with the dictator, and agree with the dictator's assessment and plan as written ,documented as a scribe. Based on total visit time, I have performed more than 50% of the visit. Objective - Vital Signs Vital signs: Vital Signs Temp 97.9 F 02/05/24 07:32 Pulse 57 L 02/05/24 07:32 Resp 16 02/05/24 07:32 BP 144/74 02/05/24 07:32 Pulse Ox 97 02/05/24 11:45 FiO2 Intake & Output 02/04/24 02/05/24 02/05/24 18:59 06:59 18:59 Intake Total 540 50 Balance 540 50 Weight 58.967 kg Intake: IV 50 Oral 540 Other: Voiding Method Toilet Toilet # Voids 1 2 - Labs CBC & Chem 7: 02/04/24 11:03 10/27/24 11:03 Labs: Abnormal Lab Results - Last 24 Hours (Table) 02/05/24 Range/Units 06:19 Triglycerides 248.00 H (0.00-149.00) mg/dL VLDL Cholesterol, Calc 49.60 H (5.00-40.00) mg/dL HDL Cholesterol 35.60 L (40.00-60.00) mg/dL
[2024-02-06 07:53] VITALS: BP 126/73; PULSE 70; TEMP 98
[2024-02-06] MEDS: ASPIRIN 81 MG PO SCH (08:31)
--- NOTE | 2024-02-06 08:42 | P.PN ---
Subjective Progress Note Date: 02/06/24 Consult reason: chest pain History of present illness: This is a 73-year-old female patient of Dr. Harp with past medical history of hypertension, dyslipidemia, aortic insufficiency, AV heart block. We have been asked to evaluate the patient for chest pain. Patient states that she developed chest pain that been going on for the past 2 days and radiated to her left arm and upper back. The pain felt like a tightness. She denies any discomfort at this time. Blood pressure 144/74, heart rate 57, pulse ox 98% on room air. Heart rate in the 30s and 40s during the night. Discussed option of cardiac catheterization with the patient and she is willing to move forward with this. EKG: Sinus mechanism Chest x-ray: No acute process. Mild cardiomegaly and possible underlying COPD. Previous surgery to the right breast and right axilla. Laboratory studies: CBC, D-dimer, electrolytes and renal function all within normal limits. Troponin negative x 3. Liver function tests are normal. proBNP 180. Home cardiac medications: Amlodipine 5 mg daily, atenolol 25 mg daily, clonidine 0.1 mg daily, hydrochlorothiazide 25 mg daily, lisinopril 40 mg daily, simvastatin 20 mg at bedtime. Echocardiogram performed 10/16/2023 revealed normal EF, mild MR, mild , mild to moderate AR, mild to moderate TR, estimated RVSP 37 mmHg. Lexiscan Cardiolite stress test performed 07/11/2019 was normal EF and normal study. 02/05 Patient is seen and examined. Yesterday, patient underwent cardiac catheterization with Dr. Harp which revealed normal coronary arteries, right dominance, normal LVEDP. Patient was also evaluated by electrophysiology, Dr. Rosenberg, with recommendations to stop atenolol and avoid beta-blockers, avoid clonidine. Recommends lisinopril 40 mg in the morning, amlodipine 5 mg in the evening and may be increased to 10 mg daily at night if needed. There is no indication for permanent pacing at this time. Patient to follow-up in the office in 1 week due to washout. For atenolol and at that time obtain Holter monitor for 2-week. Patient denies having any chest pain or shortness of breath at this time. Patient did have bradycardia during the night. Blood pressure 126/73, heart rate 70, pulse ox 98% on room air. Physical examination: Gen: This is a 73-year-old female in no acute distress VS: reviewed HEENT: Head is atraumatic, normocephalic. Pupils equal, round. Sclerae is anicteric. NECK: Supple. No JVD. LUNGS: Clear to auscultation. No wheezes or rhonchi. No intercostal retractions. HEART: Regular rate and rhythm. ABDOMEN: Soft No tenderness. EXTREMITIES: No pedal edema. No calf tenderness. NEUROLOGICAL: Patient is awake, alert and oriented x3. Assessment: Unstable angina Bradycardia with known history of asymptomatic AV heart block Hypertension Dyslipidemia Aortic insufficiency Plan: Continue patient's home cardiac medications Stop atenolol Lisinopril 40 mg in the morning and amlodipine 5 mg in the evening which may be increased to 10 mg if needed Outpatient follow-up with Dr. Harp in 1 week with plan for Holter monitor for 2-week. Nurse practitioner note has been reviewed, I agree with documented findings and plan of care. Patient was seen and examined. Objective - Vital Signs Vital signs: Vital Signs Temp 98.1 F 02/06/24 02:00 Pulse 67 02/06/24 02:00 Resp 16 02/06/24 02:00 BP 125/70 02/06/24 02:00 Pulse Ox 98 02/06/24 02:00 FiO2 Intake & Output 02/05/24 02/06/24 02/06/24 18:59 06:59 18:59 Intake Total 390 Balance 390 Intake: IV 50 Oral 340 Other: Voiding Method Toilet Toilet # Voids 3 2 - Labs CBC & Chem 7: 02/04/24 11:03 02/04/24 11:03 Labs: Abnormal Lab Results - Last 24 Hours (Table) 02/05/24 Range/Units 06:19 Triglycerides 248.00 H (0.00-149.00) mg/dL VLDL Cholesterol, Calc 49.60 H (5.00-40.00) mg/dL HDL Cholesterol 35.60 L (40.00-60.00) mg/dL
--- NOTE | 2024-02-06 20:04 | P.DS ---
Providers Date of admission: 02/04/24 14:39 Expected date of discharge: 02/06/24 Attending physician: Kurt Matt Consults: 02/04/24 14:38 Consult Physician Urgent Consulting Provider: Paul Harp Consult Reason/Comments: cp Do you want consulting provider notified?: Yes 02/05/24 10:37 Consult Physician Routine Consulting Provider: Shawn Rosenberg Consult Reason/Comments: bradycardia, known av block Do you want consulting provider notified?: Yes Primary care physician: [facility] Course: Patient is a 73-year-old female with a known history of breast mass status post right breast needle localization lumpectomy, left breast reduction mammoplasty in April 2023, biopsy showed focal atypical ductal hyperplasia and focal flat epithelial atypia, all margins and benign and negative for malignancy, hypertension, hyperlipidemia, remote history of palpitations with ablation presents to ER with complaints of chest discomfort/tightness and also numbness o f the left upper extremity. Symptoms have been present for the past 1 week patient states that symptoms really gets worked exertional walking. Associated with mild shortness of breath. No nausea vomiting or diaphoresis. No headache or dizziness or lightheadedness. Denied any palpitations. Denied any fever or chills. No cough or sputum production. On admission blood pressure 142/64 pulse is 54 respiration 18 and pulse ox 91% on room air. EKG showed ectopic atrial bradycardia with heart rate 50 Chest x-ray showed mild cardiomegaly and possible underlying COPD. Previous surgery to the right breast and right axilla. No acute process seen. Laboratory data reviewed. Troponin x 3 negative. Blood sugar 101. Liver enzymes are not elevated proBNP 180, D-dimer 0.42 02/05/2024 Patient is seen follow-up this morning underwent cardiac catheterization with no intervention noted, per Dr. Potts, a consult was placed to Dr. Rosenberg for further evaluation and possible EP study. Patient denies chest pain or shortness of breath and reports to feeling well. Patient currently undergoing catheterization protocol of the right wrist TR band and tolerating thus far. Patient is evaluated by Dr. Rosenberg and cleared and patient may go home. Will await EP evaluation and patient is agreeable to this February 06, 2024: Cardiac catheterization yesterday showed normal coronaries. Seen by EP Dr. Ruiz Rosenberg. Patient's at [facility] was discontinued. Avoid beta- blockers and clonidine. Patient to be discharged on lisinopril 40 mg in the morning and amlodipine 5 mg at night. Patient is to follow-up in the office in 1 week's time. And obtain a Holter monitor. Discussed with patient. On examination: VITAL SIGNS: [98, 70, 16, 126 x 73, 98% room air] GENERAL APPEARANCE: Ending up, comfortable HEENT: Normal external appearance of nose and ear. Oral cavity normal EYES: Pupils equal. Conjunctiva normal. NECK: JVD not raised. Mass not palpable. RESPIRATORY: Respiratory effort normal. Lungs clear to auscultation. CARDIOVASCULAR: First and second sounds normal. No edema. ABDOMEN: Soft. Liver and spleen not palpable. No tenderness. No mass palpable. PSYCHIATRY: Alert and oriented x3. Mood and affect normal. INVESTIGATIONS, reviewed in the clinical context: Cardiac catheterization: Normal coronaries February 03: White count 7.9 hemoglobin 12.6 potassium 4.6 creatinine 0.72 LDL 75.8 TSH 3.36 Assessment: Atypical chest pain. Ruled out ACS. Status post cardiac catheterization on 02/05/2024 with normal coronaries Blocked PACs, AV node Wenckebach block and then occasional Mobitz type II [id number] outpatient Dr. Ruiz Rosenberg History of right breast lumpectomy and left reduction mammoplasty in April 2023 History of palpitations and ablation several years ago, Essential hypertension Hyperlipidemia Full code Disposition: Home Plan - Discharge Summary Discharge Rx Participant: Yes New Discharge Prescriptions: New Aspirin 81 mg PO DAILY tab Continue lisinopriL 40 mg PO DAILY Simvastatin [Zocor] 20 mg PO HS Multivitamin [Multivitamins Adult Gummies] 1 tab PO DAILY Calcium Carbonate [Calcium] 600 mg PO DAILY hydroCHLOROthiazide 25 mg PO DAILY Exemestane [Aromasin] 25 mg PO DAILY Changed amLODIPine [Norvasc] 5 mg PO HS #0 Discontinued cloNIDine HCL [Catapres] 0.1 mg PO DAILY atenoloL [Tenormin] 25 mg PO DAILY Discharge Medication List Calcium Carbonate [Calcium] 600 mg PO DAILY 08/02/18 [History] Multivitamin [Multivitamins Adult Gummies] 1 tab PO DAILY 08/02/18 [History] Simvastatin [Zocor] 20 mg PO HS 08/02/18 [History] lisinopriL 40 mg PO DAILY 08/02/18 [History] hydroCHLOROthiazide 25 mg PO DAILY 01/02/20 [History] Exemestane [Aromasin] 25 mg PO DAILY 02/04/24 [History] Aspirin 81 mg PO DAILY tab 02/06/24 [Rx] amLODIPine [Norvasc] 5 mg PO HS #0 02/06/24 [Rx] Follow up Appointment(s)/Referral(s): Shawn Rosenberg MD [STAFF PHYSICIAN] - As Needed (Patient seen in the hospital. Will see her as needed) Paul Harp MD [STAFF PHYSICIAN] - 02/19/24 8:45 am Rick Cazares DO [Primary Care Provider] - 1-2 days Patient Instructions/Handouts: Chest Pain (DC) Activity/Diet/Wound Care/Special Instructions: Activity limited until follow-up Follow-up with primary care provider on discharge Follow-up with cardiology outpatient Continue taking medications as prescribed Continue holding atenolol for now until follow-up with cardiology Discontinue atenolol Discontinue clonidine Lisinopril and hydrochlorothiazide in the morning Amlodipine 5 mg in the evening Delay/deferr Holter monitor placement for about a week 2-week [facility]ter monitor [facility] upon follow-up Discharge Disposition: HOME SELF-CARE
== END 2024-02-06 11:35 | disposition home or self-care (01) ==
LOC: EC 10:36 → 6NMEDSUR 14:39
PROVIDERS: ADMIT Hospitalist; ATTEND Hospitalist
DX: R07.89 Other chest pain (principal); I20.0 Unstable angina; I35.1 Nonrheumatic aortic (valve) insufficiency; I44.1 Atrioventricular block, second degree; I10 Essential (primary) hypertension; E78.5 Hyperlipidemia, unspecified; Z85.3 Personal history of malignant neoplasm of breast; Z79.811 Long term (current) use of aromatase inhibitors; Z79.899 Other long term (current) drug therapy
CPT/HCPCS: 96372 ×2; 99285; 36415; 94760; 93005 ×2; 93458; 85379; 83880; 80061; 80053; 83735; 84443; 84484; 85025; 85610; 85730; 71046; G0378 ×3; C1769 ×2; C1894; J1644 ×4; J2003; J3010; Q9967